=== PATIENT | female | born 1940 | race Caucasian/White ===

== ENCOUNTER → 2016-06-02 | Outpatient (CLI) | payer OTHER ==
[~2016-06-02] MED LIST: AMLO5TAB2 PO; ASPI81CH CHEW; ATEN50TA PO; ATOR20TA15 PO; COQ-30CA2 PO; FENT25T T-DERMAL; FISH1000 PO; HYDR-3366 PO; OMEP20CA2 PO; SERT25TA83 PO; TRAM50TA PO; TRIA37.53 PO
== END ==
LOC: CPRE 11:49
PROVIDERS: ATTEND Neurological Surgery
DX: M99.83 Other biomechanical lesions of lumbar region (principal); M48.06 Spinal stenosis, lumbar region; M96.1 Postlaminectomy syndrome, not elsewhere classified

== ENCOUNTER → 2016-06-04 | Day surgery (SDC) | payer OTHER ==
[~2016-06-04] VITALS: Ht 160 cm; Wt 73.1 kg
[~2016-06-04] MED LIST changes: +ACETAMINOPHEN 1000 MG/100 ML VIAL IV ONE; +DEXAMETHASONE SOD PHOS 4 MG/ML VIAL ONE; +DO NOT ADM ANY ANTICOAGULANT DRUGS XX PRN; +FAMOTIDINE 20 MG/2 ML VIAL ONE; +GELFOAM SIZE 100 ONE; +INSULIN HUMAN REGULAR 1,000 UNITS/10 ML VIAL SQ PRN; +LACTATED RINGER'S 1000 ML IV SCH; +METOPROLOL TARTRATE 25 MG TAB PO PRN; +MIDAZOLAM HCL 2 MG/2 ML VIAL ONE; +NEOSTIGMINE 3 MG/3 ML SYR IV ONE; +ONDANSETRON HCL 4 MG/2 ML VIAL IV PUSH ONE; +PHENYLEPH/NS 1000 MCG/10 ML SYR IV ONE; +PROPOFOL 200 MG/20 ML AMP IV ONE; +SODIUM CHLOR 0.9% 1000 ML INJ 1,000 ML IV SCH; +SODIUM CHLORID 0.9% 500 ML IV SCH; +SUGAMMADEX SODIUM 200 MG/2 ML VIAL IV PUSH ONE; +THROMBIN (TOPICAL) 5,000 UNIT VIAL ONE; +VANCOMYCIN HCL 1000 MG ON-CALL/NS 250 ML IV SCH; +VANCOMYCIN HCL 1000 MG VIAL ONE; +ePHEDrine/NS 25 MG/5 ML SYR IV ONE; +fentaNYL CITRATE 250 MCG/5 ML AMP ONE; +methylPREDNISolone ACETATE 40 MG/ML VIAL ONE
[2016-06-04 06:48] VITALS: BP 164/83; PULSE 72; RESP 18; TEMP 97.9; O2SAT 97
[2016-06-04] MEDS: BUPIVACAINE/EPINEPHRINE 0.5% PF 30 ML VIAL ONE ×2 (09:04→09:45)
--- NOTE | 2016-06-04 10:26 | PD.OP ---
MD Danny Ag MD Operative Report Date of Surgery: Jun 04, 2016 Preoperative Diagnosis: Right L3-4 lateral disc herniation with facet hypertrophy associated back pain and intractable right L3 radiculopathy; history of right L3-4 hemilaminotomy with synovial cyst resection Postoperative Diagnosis: Same Procedure: Redo right L3-4 hemilaminotomy with the medial facetectomy/foraminotomy with microdiscectomy; microsurgical technique Anesthesia: Gen. endotracheal by Lina Corcoran Surgeon: Camden Comer M.D. [employer] Food Supervisor(s): Layla Davila Operation and Findings: Following administration of general endotracheal anesthesia, patient received vancomycin 1 g intravenously. Sequential compression devices were placed for DVT prophylaxis. She was then turned in prone position on Brady frame and the Jordin table and all pressure points adequately padded. The lumbar region was then shaved and prepped with a Betadine and ChloraPrep. Sterile draping undertaken with Ioban. Midline incision overlying the previous L3-4 level was then made after infiltrating the skin with 0.5% Marcaine with epinephrine solution. The skin incision was made extending down through the fascia and then using the subperiosteal plane on the right side the muscular attachments to the spinous process and lamina were detached. Intraoperative fluoroscopy was used for level confirmation and further dissection undertaken using microtechnique with microscope magnification. Previous right L3-4 hemilaminotomy with medial facetectomy was evident along with epidural scar tissue. I drilled out to this some more the right L3-4 facet to expose the foramen and also the more normal dura and exiting nerve root. There was facet hypertrophy along with a lateral disc herniation leading to significant foraminal stenosis and exiting nerve root impingement. The anulus was incised at the axilla of the nerve root and the thecal sac and the microdiscectomy undertaken with pituitary forceps. The foramen along with the exiting L3 nerve root was completely decompressed. Epidural venous stasis achieved with bipolar cautery along with Gelfoam and thrombin. The area was then copiously irrigated with vancomycin solution. The retractors removed and the muscle fascia proximal using 2-0 Vicryl interrupted stitches. 3-0 Vicryl subcuticular stitches were also placed in an interrupted fashion and planned skin closure was with Mastisol and Steri-Strips. A sterile dressing was then applied and the patient then turned in the supine position and extubated and taken to recovery room in stable condition. There were no intraoperative complications and all sponge and needle count was correct at the end of the procedure. Estimated blood loss about 25 ml. Camden Comer MD Jun 04, 2016 10:26
--- NOTE | 2016-06-04 10:52 | RADRPT ---
EXAM DATE/TIME: 06/04/2016 07:58 [facility] COMPARISON: No previous studies available for comparison. INDICATIONS : L3-L4 lumbar samuel-laminotomy. Level localization. MEDICAL HISTORY : None. SURGICAL HISTORY : None. ENCOUNTER: Initial ACUITY: 1 day PAIN SCORE: Non-responsive. LOCATION: Lumbar spine. FINDINGS: Single lateral view of the lumbar spine is obtained in the operating room. Posterior retractors and a pointer are seen. The pointer is at the L3/L4 level. CONCLUSION: Retractors and pointer at L3/L4. Duke Almazan MD on June 04, 2016 at 10:50 Board Certified Radiologist. This report was verified electronically.
[2016-06-04 12:36] VITALS: BP 134/69; PULSE 74; RESP 16; TEMP 98.7; O2SAT 99
== END | disposition home or self-care (01) ==
LOC: HSDC 05:53
PROVIDERS: ATTEND Neurological Surgery
DX: M51.16 Intervertebral disc disorders with radiculopathy, lumbar region (principal)
CPT/HCPCS: 00630; 63042; 72020; 76000; J0131; J1030; J1100; J2250; J2370; J2405; J2710; J3010; J3370; J7050; J7120

== ENCOUNTER 2016-07-27 14:03 | Observation (INO) | payer OTHER ==
[~2016-07-27 14:03] MED LIST changes: -ACETAMINOPHEN 1000 MG/100 ML VIAL IV ONE; -COQ-30CA2 PO; -DEXAMETHASONE SOD PHOS 4 MG/ML VIAL ONE; -DO NOT ADM ANY ANTICOAGULANT DRUGS XX PRN; -FAMOTIDINE 20 MG/2 ML VIAL ONE; -GELFOAM SIZE 100 ONE; -INSULIN HUMAN REGULAR 1,000 UNITS/10 ML VIAL SQ PRN; -LACTATED RINGER'S 1000 ML IV SCH; -METOPROLOL TARTRATE 25 MG TAB PO PRN; -MIDAZOLAM HCL 2 MG/2 ML VIAL ONE; -NEOSTIGMINE 3 MG/3 ML SYR IV ONE; -ONDANSETRON HCL 4 MG/2 ML VIAL IV PUSH ONE; -PHENYLEPH/NS 1000 MCG/10 ML SYR IV ONE; -PROPOFOL 200 MG/20 ML AMP IV ONE; -SODIUM CHLOR 0.9% 1000 ML INJ 1,000 ML IV SCH; -SODIUM CHLORID 0.9% 500 ML IV SCH; -SUGAMMADEX SODIUM 200 MG/2 ML VIAL IV PUSH ONE; -THROMBIN (TOPICAL) 5,000 UNIT VIAL ONE; -VANCOMYCIN HCL 1000 MG ON-CALL/NS 250 ML IV SCH; -VANCOMYCIN HCL 1000 MG VIAL ONE; -ePHEDrine/NS 25 MG/5 ML SYR IV ONE; -fentaNYL CITRATE 250 MCG/5 ML AMP ONE; -methylPREDNISolone ACETATE 40 MG/ML VIAL ONE
[2016-07-27] MEDS ORDERED: SODIUM CHLORID 0.9% 500 ML INJ 500 ML IV ONE (14:30)
[2016-07-27] MEDS ORDERED: SODIUM CHLORIDE 0.9% FLUSH 10 ML FLUSH IVF PRN (14:30)
[2016-07-27] MEDS ORDERED: MECLIZINE HCL 25 MG TAB PO ONE (14:30)
[2016-07-27 14:37] VITALS: RESP 16; O2SAT 96
--- NOTE | 2016-07-27 15:11 | RADRPT ---
EXAM DATE/TIME: 07/27/2016 14:43 [facility] COMPARISON: CHEST SINGLE AP, July 10, 2015, 15:36. INDICATIONS : Shortness of breath. MEDICAL HISTORY : None. SURGICAL HISTORY : None. ENCOUNTER: Initial ACUITY: 1 day PAIN SCORE: 0/10 LOCATION: Bilateral chest FINDINGS: There is a possible 1.7 cm nodule in the left upper lobe versus overlap of the bony structures. Heart and mediastinum are unremarkable for technique. CONCLUSION: Possible left upper lobe nodule and noncontrast chest CT is recommended to further characterize. Velvet Collins MD on July 27, 2016 at 15:08 Board Certified Radiologist. This report was verified electronically.
[2016-07-27] MEDS ORDERED: traMADol HCL 50 MG TAB PO ONE (15:15)
[2016-07-27 16:00] LABS: AUTOMATED NEUTROPHIL # 6.8 TH/MM3 (1.8-7.7); BASOPHIL # 0.1 TH/MM3 (0-0.2); BASOPHIL % 0.8 % (0.0-2.0); EOSINOPHIL % 0.3 % (0.0-4.0); HEMATOCRIT 40.5 % (35.0-46.0); HEMO FLAGS DIFF FINAL; LYMPH % 15.1 % (9.0-44.0); LYMPHOCYTE # 1.3 TH/MM3 (1.0-4.8); MEAN CELL VOLUME 89.5 FL (80.0-100.0); MEAN CORPUSCULAR HEMOGLOBIN 31.6 PG (27.0-34.0); MEAN CORPUSCULAR HGB CONC 35.3 % (32.0-36.0); NEUT % 76.8 % (16.0-70.0); PLATELET COUNT 253 TH/MM3 (150-450); RED BLOOD COUNT 4.53 MIL/MM3 (4.00-5.30); RED CELL DISTRIBUTION WIDTH 12.4 % (11.6-17.2); WHITE BLOOD COUNT 8.9 TH/MM3 (4.0-11.0)
[2016-07-27 16:20] LABS: APTT (PATIENT) 31.8 SEC (24.3-30.1); PROTHROMBIN TIME - PATIENT 11.2 SEC (9.8-11.6)
[2016-07-27 16:34] LABS: ALT (GPT) 25 U/L (10-53); ANION GAP 11 MEQ/L (5-15); AST (GOT) 28 U/L (15-37); BICARBONATE 28.2 MEQ/L (21.0-32.0); BLOOD UREA NITROGEN 10 MG/DL (7-18); CHLORIDE 99 MEQ/L (98-107); GLOMERULAR FILTRATION RATE 77 ML/MIN (>89); POTASSIUM 3.5 MEQ/L (3.5-5.1); SODIUM (NA) 138 MEQ/L (136-145)
[2016-07-27 16:34] LABS: BLOOD, URINE NEG (NEG); COMMENT (UR) CULT NOT INDICATED; CULTURE IF INDICATED CULT NOT INDICATED; GLUCOSE,URINE NEG (NEG); KETONE, URINE NEG (NEG); MUCUS URINE FEW /lpf (OCC); NITRITE,URINE NEG (NEG); SQUAMOUS EPITHELIAL CELL URINE 1 /hpf (0-5); URINE COLOR YELLOW (YELLW/STRAW)
[2016-07-27 16:37] LABS: ALKALINE PHOSPHATASE 98 U/L (45-117)
--- NOTE | 2016-07-27 18:19 | RADRPT ---
EXAM DATE/TIME: 07/27/2016 17:51 [facility] COMPARISON: No previous studies available for comparison. INDICATIONS : Near syncopal episodes. RADIATION DOSE: 56.35 CTDIvol (mGy) MEDICAL HISTORY : Cardiovascular disease. Hypertension. Carcinoma, lung. SURGICAL HISTORY : Tubal ligation. lung surgery ENCOUNTER: Initial ACUITY: 1 week PAIN SCALE: 0/10 LOCATION: cranial TECHNIQUE: Multiple contiguous axial images were obtained of the head. Using automated exposure control and adj ustment of the mA and/or kV according to patient size, radiation dose was kept as low as reasonably a chievable to obtain optimal diagnostic quality images. FINDINGS: There is no evidence for intracranial hemorrhage, mass effect, mass lesions, or edema. The visualize d bony structures appear intact. Slight degree of brain atrophy is seen. Slight periventricular whit e matter changes are seen nonspecific mostly consistent with chronic small vessel ischemic changes. There are no signs of acute infarction for technique. CONCLUSION: Slight atrophic and small vessel ischemic changes without any evidence for acute hemorrhage or mass effect. Velvet Collins MD on July 27, 2016 at 18:16 Board Certified Radiologist. This report was verified electronically.
[2016-07-27 18:42] VITALS: BP 187/78; PULSE 67; RESP 18
--- NOTE | 2016-07-27 18:50 | PD ---
HPI Chief Complaint: Syncope/Near-Syncope Time Seen by Provider: 14:16 Travel History International Travel<30 days: No Contact w/Intl Traveler<30days: No Traveled to known affect area: No History of Present Illness HPI Patient is a 76 year old female who comes in complaining of dizziness and back pain. She has a history of back pain, treated by surgery by Dr. Comre in May. She went back to see Dr. Comer 2 weeks ago who gave her a prescription for Fentanyl patch. She has been using the Fentanyl patch and taking hydrocodone as needed. She says she has been feeling dizzy for several days and she is having a difficult time walking. She says she is unable to care for herself due to her pain and dizziness. She has not had any chest pain or SOB. She denies fever or chills. 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) Cardiovascular Problems: Yes (stent) High Cholesterol: Yes Diabetes: No Patient Takes Glucophage: No Endocrine: No Fibromyalgia: Yes Genitourinary: No Hepatitis: No Hiatal Hernia: No Herniated Disk: Yes (maybe bulging discs - back care surgery) Hypertension: Yes Immune Disorder: No Musculoskeletal: Yes (NECK AND BACK) Neurologic: Yes (NEUROPATHY, BULGING DISC) Psychiatric: Yes (DEPRESSION) Reproductive: No Respiratory: Yes (CARCINOID TUMORS ALL LUNG BROWER) Thyroid Disease: No Tetanus Vaccination: Unknown Influenza Vaccination: No ?: Not : 1 Para: 1 Tubal Ligation: Yes Past Surgical History AICD: No Body Medical Devices: STENT, RIGHT ANKLE HARDWWARE Cardiac Surgery: Yes Coronary Stent: Yes Ear Surgery: No Eye Surgery: No Gynecologic Surgery: Yes (LAP TUBAL LIGATION) Joint Replacement: No Neurologic Surgery: Yes (CERVICAL FUSION) Oral Surgery: Yes (TONSILLECTOMY) Pacemaker: No Thoracic Surgery: Yes Social History Alcohol Use: Yes (couple drinks every night, except this last month, minimal) Tobacco Use: No Substance Use: No Allergies-Medications (Allergen,Severity, Reaction): Coded Allergies: Sulfa (Verified Allergy, Severe, 07/16/16) UNKNOWN Reported Meds & Prescriptions Reported Meds & Active Scripts Active Duragesic Patch 72 HR (Fentanyl) 25 Mcg/Hr Patch 25 Mcg T-DERMAL Q72H Remove old patch when new one placed. [place] (Hydrocodone-Acetaminophen) 10-325 Mg Tab 1 Tab PO Q6H PRN Reported Atenolol 50 Mg Tab 50 Mg PO DAILY Fish Oil ([place]-3 Fatty Acids) 1,000 Mg Cap 100 Mg PO DAILY Aspirin 81 Mg Chew 81 Mg CHEW DAILY Triamterene-Hydrochlorothiazide 37.5-25 Mg Cap 1 Cap PO DAILY Tramadol (Tramadol HCl) 50 Mg Tab 50 Mg PO DAILY 90 Days Atorvastatin (Atorvastatin Calcium) 20 Mg Tab 20 Mg PO DAILY 90 Days Amlodipine (Amlodipine Besylate) 5 Mg Tab 5 Mg PO DAILY 90 Days Sertraline (Sertraline HCl) 25 Mg Tab 25 Mg PO DAILY 90 Days Omeprazole 20 Mg Cap 20 Mg PO DAILY 90 Days Review of Systems Except as stated in HPI: all other systems reviewed are Neg General / Constitutional: No: Fever, Chills HENT: No: Headaches Cardiovascular: No: Chest Pain or Discomfort, Palpitations Respiratory: No: Shortness of Breath Gastrointestinal: No: Nausea Musculoskeletal: Positive: Pain, No: Edema Skin: No Rash, No Change in Pigmentation Neurologic: Positive: Dizziness, No: Weakness Physical Exam Narrative GENERAL: Awake and alert, in no acute distress. SKIN: Focused skin assessment warm/dry. HEAD: Atraumatic. Normocephalic. EYES: Pupils equal and round. No scleral icterus. EOMI ENT: Mucous membranes pink and moist. NECK: Trachea midline. No JVD. CARDIOVASCULAR: Regular rate and rhythm. No murmur appreciated. RESPIRATORY: No accessory muscle use. Clear to auscultation. Breath sounds equal bilaterally. GASTROINTESTINAL: Abdomen soft, non-tender, nondistended. MUSCULOSKELETAL: No obvious deformities. No clubbing. No cyanosis. No edema. No lumbar spine tenderness. No tenderness to the hips. NEUROLOGICAL: Awake and alert. No obvious cranial nerve deficits. Motor grossly within normal limits. Normal speech. PSYCHIATRIC: Appropriate mood and affect; insight and judgment normal. Data Data Last Documented VS Vital Signs Date Time Temp Pulse Resp B/P Pulse Ox O2 Delivery O2 Flow Rate FiO2 07/27/16 14:37 16 96 07/27/16 14:25 Room Air Orders Electrocardiogram (07/27/16 14:29) Complete Blood Count With Diff (07/27/16 14:29) Comprehensive Metabolic Panel (07/27/16 14:29) Troponin I (07/27/16 14:29) Act Partial Throm Time (Ptt) (07/27/16 14:29) Prothrombin Time / Inr (Pt) (07/27/16 14:29) Urinalysis - C+S If Indicated (07/27/16 14:29) Ua Includes Microscopic (07/27/16 14:29) Chest, Single Ap (07/27/16 14:29) Ecg Monitoring (07/27/16 14:29) Iv Access Insert/Monitor (07/27/16 14:29) Oximetry (07/27/16 14:29) Meclizine (Antivert) (07/27/16 14:30) Sodium Chloride 0.9% Flush (Ns Flush) (07/27/16 14:30) Sodium Chlorid 0.9% 500 Ml Inj (Ns 500 M (07/27/16 14:30) Tramadol (Ultram) (07/27/16 15:15) Ct Brain W/O Iv Contrast(Rout) (07/27/16 ) Labs Laboratory Tests Test 07/27/16 07/27/16 15:00 15:47 White Blood Count 8.9 TH/MM3 Red Blood Count 4.53 MIL/MM3 Hemoglobin 14.3 GM/DL Hematocrit 40.5 % Mean Corpuscular Volume 89.5 FL Mean Corpuscular Hemoglobin 31.6 PG Mean Corpuscular Hemoglobin 35.3 % Concent Red Cell Distribution Width 12.4 % Platelet Count 253 TH/MM3 Mean Platelet Volume 10.4 FL Neutrophils (%) (Auto) 76.8 % Lymphocytes (%) (Auto) 15.1 % Monocytes (%) (Auto) 7.0 % Eosinophils (%) (Auto) 0.3 % Basophils (%) (Auto) 0.8 % Neutrophils # (Auto) 6.8 TH/MM3 Lymphocytes # (Auto) 1.3 TH/MM3 Monocytes # (Auto) 0.6 TH/MM3 Eosinophils # (Auto) 0.0 TH/MM3 Basophils # (Auto) 0.1 TH/MM3 CBC Comment DIFF FINAL Differential Comment Prothrombin Time 11.2 SEC Prothromb Time International 1.0 RATIO Ratio Activated Partial 31.8 SEC Thromboplast Time Sodium Level 138 MEQ/L Potassium Level 3.5 MEQ/L Chloride Level 99 MEQ/L Carbon Dioxide Level 28.2 MEQ/L Anion Gap 11 MEQ/L Blood Urea Nitrogen 10 MG/DL Creatinine 0.74 MG/DL Estimat Glomerular Filtration 77 ML/MIN Rate Random Glucose 109 MG/DL Calcium Level 9.8 MG/DL Total Bilirubin 1.0 MG/DL Aspartate Amino Transf 28 U/L (AST/SGOT) Alanine Aminotransferase 25 U/L (ALT/SGPT) Alkaline Phosphatase 98 U/L Troponin I LESS THAN 0.02 NG/ML Total Protein 7.6 GM/DL Albumin 3.7 GM/DL Urine Color YELLOW Urine Turbidity CLEAR Urine pH 8.0 Urine Specific [place] 1.008 Urine Protein NEG mg/dL Urine Glucose (UA) NEG mg/dL Urine Ketones NEG mg/dL Urine Occult Blood NEG Urine Nitrite NEG Urine Bilirubin NEG Urine Urobilinogen LESS THAN 2.0 MG/DL Urine Leukocyte Esterase TRACE Urine WBC 1 /hpf Urine Squamous Epithelial 1 /hpf Cells Urine Mucus FEW /lpf Microscopic Urinalysis Comment CULT NOT INDICATED MDM Medical Decision Making Medical Screen Exam Complete: Yes Emergency Medical Condition: Yes Medical Record Reviewed: Yes Interpretation(s) ECG shows sinus rhythm at 64, no ST elevation Differential Diagnosis Electrolyte abnormalities vs medication side affect vs CVA Narrative Course Patient is a 76 year old female who comes in complaining of dizziness and inability to care for herself. Exam shows no neurologic abnormalities, although she has some difficulty walking. IV established, labs sent. Labs show no acute abnormalities. Urinalysis negative for infection. CT head shows no acute findings. Patient states she is unable to care for herself at home. Will place in observation. Diagnosis Primary Impression: Dizziness Additional Impression: Unsteadiness Admitting Information Admitting Physician Requests: Observation Lauren Galan MD Jul 27, 2016 18:49
[2016-07-27] MEDS ORDERED: ACETAMINOPHEN 325 MG TAB PO PRN (19:45)
[2016-07-27] MEDS ORDERED: ONDANSETRON HCL 4 MG/2 ML VIAL IVP PRN (19:45)
[2016-07-27] MEDS ORDERED: NALOXONE HCL 0.4 MG/ML AMP IV PRN (19:45)
[2016-07-27] MEDS ORDERED: SODIUM CHLORIDE 0.9% FLUSH 10 ML FLUSH IV FLUSH PRN (19:45)
[2016-07-27 21:22] VITALS: BP 158/72; PULSE 65; RESP 16; O2SAT 97
[2016-07-27] MEDS: SODIUM CHLORIDE 0.9% FLUSH 10 ML FLUSH IV FLUSH SCH (21:24)
[2016-07-27] MEDS: ENOXAPARIN SODIUM 40 MG/0.4 ML SYRINGE SQ SCH (21:24)
[2016-07-27] MEDS: DOCUSATE SODIUM 100 MG CAP PO SCH (21:24)
[2016-07-27] MEDS: fentaNYL 25 MCG/HR PATCH T-DERMAL SCH (21:25)
[2016-07-27] MEDS: ACETAMINOPHEN/HYDROcodone 325 MG/10 MG TAB PO PRN (21:34)
[2016-07-28] VITALS (7 sets, daily range): BP systolic 109–175; BP diastolic 56–79; PULSE 62–73; RESP 17–20; TEMP 97.9–98.6; O2SAT 93–98
--- NOTE | 2016-07-28 00:41 | HHI.HP ---
[facility] Danny Villegas MD Admission Diagnosis dizziness, unable to walk Diagnoses: (1) Back pain Diagnosis: Principal (2) Unsteadiness Diagnosis: Principal (3) Dizziness Diagnosis: Principal (4) H/O laminectomy Diagnosis: Principal Travel History International Travel<30 Days: No Contact w/Intl Traveler <30 Da: No Traveled to Known Affected Are: No History of Present Illness Mrs. Pal is a 76 year old female. She reports a worsening of her laminectomy post op pain recently and has come into the hospital for further evaluation and pain management. The pain is preventing her from ambulating for more than a few feet and standing for any time than more than a couple of minutes. She feels it worsened recently. No fevers or chills. No leukocytosis. She also reports occasional dizziness, which sounds like a chronic BPV as this has occurred prior to her laminectomy also. No other complaints. Review of Systems Constitutional: DENIES: Fever, Chills Eyes: DENIES: Blurred vision, Diplopia Respiratory: DENIES: Shortness of breath Cardiovascular: DENIES: Chest pain, Palpitations Gastrointestinal: DENIES: Abdominal pain, Black stools, Bloody stools Genitourinary: DENIES: Abnormal vaginal bleeding Musculoskeletal: COMPLAINS OF: Joint pain, Back pain Integumentary: DENIES: Abnormal pigmentation Hematologic/lymphatic: DENIES: Bruising Immunologic/allergic: DENIES: Eczema Neurologic: DENIES: Abnormal gait Psychiatric: DENIES: Anxiety, Confusion, Mood changes, Hallucinations Past Family Social History Past Medical History Vertigo Osteoarthritis HTN Dyslipidemia Neuropathy Depression Past Surgical History Laminectomy Reported Medications Reported Meds & Active Scripts Active Duragesic Patch 72 HR (Fentanyl) 25 Mcg/Hr Patch 25 Mcg T-DERMAL Q72H Remove old patch when new one placed. [place] (Hydrocodone-Acetaminophen) 10-325 Mg Tab 1 Tab PO Q6H PRN Reported Atenolol 50 Mg Tab 50 Mg PO DAILY Fish Oil ([place]-3 Fatty Acids) 1,000 Mg Cap 100 Mg PO DAILY Aspirin 81 Mg Chew 81 Mg CHEW DAILY Triamterene-Hydrochlorothiazide 37.5-25 Mg Cap 1 Cap PO DAILY Tramadol (Tramadol HCl) 50 Mg Tab 50 Mg PO DAILY 90 Days Atorvastatin (Atorvastatin Calcium) 20 Mg Tab 20 Mg PO DAILY 90 Days Amlodipine (Amlodipine Besylate) 5 Mg Tab 5 Mg PO DAILY 90 Days Sertraline (Sertraline HCl) 25 Mg Tab 25 Mg PO DAILY 90 Days Omeprazole 20 Mg Cap 20 Mg PO DAILY 90 Days Allergies: Coded Allergies: Sulfa (Verified Allergy, Severe, 07/16/16) UNKNOWN Active Ordered Medications Administered Medications Medications (Trade) Dose Ordered Sig/Arlene Route PRN Reason Start Time Stop Time Status Last Admin Dose Admin Sodium Chloride (NS Flush) 2 ml BID IV FLUSH 07/27/16 21:00 07/27/16 21:24 Docusate Sodium (Colace) 100 mg Q12H PO 07/27/16 21:00 07/27/16 21:24 Enoxaparin Sodium (Lovenox Inj) 40 mg Q24H SQ 07/27/16 20:00 07/27/16 21:24 Fentanyl (Duragesic 25 Mcg Patch.72 Hr) 1 patch Q72H T-DERMAL 07/27/16 21:00 07/27/16 21:25 Acetaminophen/ Hydrocodone Bitart ([place] 10-325 Mg) 1 tab Q6H PRN PO PAIN 1 TO 10 07/27/16 19:45 07/27/16 21:34 Family History none Physical Exam Vital Signs Vital Signs Date Time Temp Pulse Resp B/P Pulse Ox O2 Delivery O2 Flow Rate FiO2 07/27/16 21:22 65 16 158/72 97 Room Air 07/27/16 18:42 67 18 187/78 Room Air 07/27/16 14:37 16 96 07/27/16 14:25 16 96 Room Air Physical Exam GENERAL: NAD, A&Ox3 SKIN: Warm and dry. HEAD: Normocephalic. EYES: No scleral icterus. No injection or drainage. NECK: Supple, trachea midline. No JVD or lymphadenopathy. CARDIOVASCULAR: Regular rate and rhythm without murmurs, gallops, or rubs. RESPIRATORY: Breath sounds equal bilaterally. No accessory muscle use. GASTROINTESTINAL: Abdomen soft, non-tender, nondistended. MUSCULOSKELETAL: No cyanosis, or edema. Back pain with gross movements. No evidence of infection. BACK: Nontender without obvious deformity. No CVA tenderness. Laboratory Laboratory Tests Test 07/27/16 07/27/16 15:00 15:47 White Blood Count 8.9 Red Blood Count 4.53 Hemoglobin 14.3 Hematocrit 40.5 Mean Corpuscular Volume 89.5 Mean Corpuscular Hemoglobin 31.6 Mean Corpuscular Hemoglobin 35.3 Concent Red Cell Distribution Width 12.4 Platelet Count 253 Mean Platelet Volume 10.4 Neutrophils (%) (Auto) 76.8 Lymphocytes (%) (Auto) 15.1 Monocytes (%) (Auto) 7.0 Eosinophils (%) (Auto) 0.3 Basophils (%) (Auto) 0.8 Neutrophils # (Auto) 6.8 Lymphocytes # (Auto) 1.3 Monocytes # (Auto) 0.6 Eosinophils # (Auto) 0.0 Basophils # (Auto) 0.1 CBC Comment DIFF FINAL Differential Comment Prothrombin Time 11.2 Prothromb Time International 1.0 Ratio Activated Partial 31.8 Thromboplast Time Sodium Level 138 Potassium Level 3.5 Chloride Level 99 Carbon Dioxide Level 28.2 Anion Gap 11 Blood Urea Nitrogen 10 Creatinine 0.74 Estimat Glomerular Filtration 77 Rate Random Glucose 109 Calcium Level 9.8 Total Bilirubin 1.0 Aspartate Amino Transf 28 (AST/SGOT) Alanine Aminotransferase 25 (ALT/SGPT) Alkaline Phosphatase 98 Troponin I LESS THAN 0.02 Total Protein 7.6 Albumin 3.7 Urine Color YELLOW Urine Turbidity CLEAR Urine pH 8.0 Urine Specific [place] 1.008 Urine Protein NEG Urine Glucose (UA) NEG Urine Ketones NEG Urine Occult Blood NEG Urine Nitrite NEG Urine Bilirubin NEG Urine Urobilinogen LESS THAN 2.0 Urine Leukocyte Esterase TRACE Urine WBC 1 Urine Squamous Epithelial 1 Cells Urine Mucus FEW Microscopic Urinalysis Comment CULT NOT INDICATED Result Diagram: 07/27/16 1500 07/27/16 1500 Imaging Last Impressions Chest X-Ray 07/27/16 1429 Signed Impressions: Service Date/Time: Wednesday, July 27, 2016 14:43 - CONCLUSION: Possible left upper lobe nodule and noncontrast chest CT is recommended to further characterize. Velvet Collins MD Head CT 07/27/16 0000 Signed Impressions: Service Date/Time: Wednesday, July 27, 2016 17:51 - CONCLUSION: Slight atrophic and small vessel ischemic changes without any evidence for acute hemorrhage or mass effect. Velvet Collins MD Assessment and Plan Problem List: (1) Unsteadiness ICD Code: R26.81 Status: Acute (2) Dizziness ICD Code: R42 Status: Acute (3) Back pain ICD Code: M54.9 Status: Acute (4) H/O laminectomy ICD Code: Z98.890 Status: Acute (5) Depression ICD Code: F32.9 Status: Acute (6) Hyperlipidemia ICD Code: E78.5 Status: Acute (7) HTN (hypertension) ICD Code: I10 Status: Acute Assessment and Plan Back Pain Unsteady Dizziness Hx of Laminectomy Neursurgery consult PRN pain treatments Out of bed with assistance only HTN Continue baseline medications Follow BP Depression No change to treatment Hyperlipidemia No change to treatment Follow as an outpatient Physician Certification 2 Midnight Certification Type: Admission for Inpatient Services Order for Inpatient Services The services are ordered in accordance with Medicare regulations or non- Medicare payer requirements, as applicable. In the case of services not specified as inpatient-only, they are appropriately provided as inpatient services in accordance with the 2-midnight benchmark. Estimated LOS (days): 2 days is the estimated time the patient will need to remain in the hospital, assuming treatment plan goals are met and no additional complications. Post-Hospital Plan: Home Trevor Brennan MD July 28, 2016 00:41
[2016-07-28 07:27] LABS: AUTOMATED NEUTROPHIL # 5.6 TH/MM3 (1.8-7.7); BASOPHIL # 0.1 TH/MM3 (0-0.2); BASOPHIL % 0.6 % (0.0-2.0); EOSINOPHIL # 0.1 TH/MM3 (0-0.4); EOSINOPHIL % 0.9 % (0.0-4.0); HEMATOCRIT 38.4 % (35.0-46.0); HEMO FLAGS DIFF FINAL; LYMPH % 33.5 % (9.0-44.0); LYMPHOCYTE # 3.2 TH/MM3 (1.0-4.8); MEAN CELL VOLUME 90.2 FL (80.0-100.0); MEAN CORPUSCULAR HEMOGLOBIN 31.2 PG (27.0-34.0); MEAN CORPUSCULAR HGB CONC 34.6 % (32.0-36.0); MONO % 7.6 % (0.0-8.0); NEUT % 57.4 % (16.0-70.0); PLATELET COUNT 220 TH/MM3 (150-450); RED BLOOD COUNT 4.25 MIL/MM3 (4.00-5.30); RED CELL DISTRIBUTION WIDTH 12.2 % (11.6-17.2); WHITE BLOOD COUNT 9.7 TH/MM3 (4.0-11.0)
[2016-07-28 07:54] LABS: BICARBONATE 30.6 MEQ/L (21.0-32.0); POTASSIUM 3.3 MEQ/L (3.5-5.1)
[2016-07-28] MEDS: ACETAMINOPHEN/HYDROcodone 325 MG/10 MG TAB PO PRN ×2 (08:10→15:48)
[2016-07-28] MEDS: SERTRALINE HCL 50 MG TAB PO SCH (08:10)
[2016-07-28] MEDS: ATORVASTATIN 20 MG TAB PO SCH (08:10)
[2016-07-28] MEDS: ATENOLOL 50 MG TAB PO SCH (08:11)
[2016-07-28] MEDS: amLODIPine BESYLATE 5 MG TAB PO SCH (08:11)
[2016-07-28] MEDS: TRIAMTERENE/HCTZ 37.5 MG/25 MG CAP PO SCH (08:11)
[2016-07-28] MEDS: PANTOPRAZOLE SOD 20 MG DELAYED RELEASE TAB PO SCH (08:11)
[2016-07-28] MEDS: DOCUSATE SODIUM 100 MG CAP PO SCH ×2 (08:11→21:28)
[2016-07-28] MEDS: ASPIRIN 81 MG CHEW TAB CHEW SCH (08:11)
[2016-07-28] MEDS: SODIUM CHLORIDE 0.9% FLUSH 10 ML FLUSH IV FLUSH SCH ×2 (08:12→21:28)
[2016-07-28] MEDS ORDERED: FATTY ACIDS PO SCH (09:00)
[2016-07-28] MEDS ORDERED: OMEGA PO SCH (09:00)
[2016-07-28] MEDS: HYDROmorphone HCL PF 1 MG/ML VIAL IV PUSH PRN (12:12)
--- NOTE | 2016-07-28 12:39 | HHI.PR ---
Subjective Remarks Pain remains and is about the same today. No numbness. She does feel weakness , but globally and related to pain/splinting. Objective Vital Signs Date Time Temp Pulse Resp B/P Pulse Ox O2 Delivery O2 Flow Rate FiO2 07/28/16 11:52 98.3 73 20 175/79 98 07/28/16 10:44 18 07/28/16 07:20 97.9 62 20 143/72 94 07/28/16 05:23 97.9 63 20 135/71 96 07/28/16 00:50 98.6 66 20 109/56 93 07/27/16 21:22 65 16 158/72 97 Room Air 07/27/16 18:42 67 18 187/78 Room Air 07/27/16 14:37 16 96 07/27/16 14:25 16 96 Room Air I/O 07/27/16 07/27/16 07/27/16 07/28/16 07/28/16 07/28/16 07:00 15:00 23:00 07:00 15:00 23:00 Output Total 30 ml Balance -30 ml Output Urine Total 30 ml # Voids 1 Result Diagram: 07/28/16 0623 07/28/16 0623 Imaging Last Impressions Chest X-Ray 07/27/16 1429 Signed Impressions: Service Date/Time: Wednesday, July 27, 2016 14:43 - CONCLUSION: Possible left upper lobe nodule and noncontrast chest CT is recommended to further characterize. Velvet Collins MD Head CT 07/27/16 0000 Signed Impressions: Service Date/Time: Wednesday, July 27, 2016 17:51 - CONCLUSION: Slight atrophic and small vessel ischemic changes without any evidence for acute hemorrhage or mass effect. Velvet Collins MD Objective Remarks GENERAL: NAD, A&Ox3 SKIN: Warm and dry. HEAD: Normocephalic. EYES: No scleral icterus. No injection or drainage. NECK: Supple, trachea midline. No JVD or lymphadenopathy. CARDIOVASCULAR: Regular rate and rhythm without murmurs, gallops, or rubs. RESPIRATORY: Breath sounds equal bilaterally. No accessory muscle use. GASTROINTESTINAL: Abdomen soft, non-tender, nondistended. MUSCULOSKELETAL: No cyanosis, or edema. BACK: Nontender without obvious deformity. No CVA tenderness. Medications and IVs Administered Medications Medications (Trade) Dose Ordered Sig/Arlene Route PRN Reason Start Time Stop Time Status Last Admin Dose Admin Sodium Chloride (NS Flush) 2 ml BID IV FLUSH 07/27/16 21:00 07/28/16 08:12 Docusate Sodium (Colace) 100 mg Q12H PO 07/27/16 21:00 07/28/16 08:11 Enoxaparin Sodium (Lovenox Inj) 40 mg Q24H SQ 07/27/16 20:00 07/27/16 21:24 Amlodipine Besylate (Norvasc) 5 mg DAILY PO 07/28/16 09:00 07/28/16 08:11 Aspirin (Aspirin Chew) 81 mg DAILY CHEW 07/28/16 09:00 07/28/16 08:11 Atenolol (Tenormin) 50 mg DAILY PO 07/28/16 09:00 07/28/16 08:11 Atorvastatin Calcium (Lipitor) 20 mg DAILY PO 07/28/16 09:00 07/28/16 08:10 Fentanyl (Duragesic 25 Mcg Patch.72 Hr) 1 patch Q72H T-DERMAL 07/27/16 21:00 07/27/16 21:25 Acetaminophen/ Hydrocodone Bitart ([place] 10-325 Mg) 1 tab Q6H PRN PO PAIN 1 TO 10 07/27/16 19:45 07/28/16 08:10 Triamterene/HCTZ (Dyazide 37.5-25 Mg) 1 cap DAILY PO 07/28/16 09:00 07/28/16 08:11 Pantoprazole Sodium (Protonix) 20 mg DAILY PO 07/28/16 09:00 07/28/16 08:11 Sertraline HCl (Zoloft) 25 mg DAILY PO 07/28/16 09:00 07/28/16 08:10 Hydromorphone HCl (Dilaudid Pf Inj) 0.5 mg Q4H PRN IV PUSH BREAKTHROUGH PAIN 07/28/16 12:15 07/28/16 12:12 A/P Problem List: (1) H/O laminectomy ICD Code: Z98.890 (2) Back pain ICD Code: M54.9 (3) Depression ICD Code: F32.9 (4) HTN (hypertension) ICD Code: I10 (5) Hyperlipidemia ICD Code: E78.5 Assessment and Plan HTN Continue baseline medications Follow BP Depression No change to treatment Hyperlipidemia No change to treatment Follow as an outpatient Trevor Brennan MD July 28, 2016 12:39
[2016-07-28] MEDS ORDERED: GADODIAMIDE PF 287 MG/ML 5 ML VIAL (for RAD MRI) IV ONE (15:30)
--- NOTE | 2016-07-28 17:08 | RADRPT ---
EXAM DATE/TIME: 07/28/2016 14:21 [facility] COMPARISON: No previous studies available for comparison. INDICATIONS : Right hip pain for 5 years. Increase in pain over the last 8 weeks. MEDICAL HISTORY : None. SURGICAL HISTORY : None. ENCOUNTER: Initial ACUITY: >1 year PAIN SCORE: 10/10 LOCATION: Right hip. FINDINGS: There is severe arthritic change in the right hip with complete superior joint space loss. There is s ome superior and lateral subluxation of the femoral head relative to the acetabulum. There is no evid ence of fracture or destructive change. Prominent subchondral sclerosis and subchondral cyst formatio n is noted. Mild arthritic changes are present in the contralateral left hip. The pelvis is intact. CONCLUSION: Severe degenerative arthritic change right hip. No acute bony findings. Duke Pastor MD on July 28, 2016 at 17:04 Board Certified Radiologist. This report was verified electronically.
--- NOTE | 2016-07-28 17:30 | RADRPT ---
EXAM DATE/TIME: 07/28/2016 15:00 [facility] COMPARISON: SPINE LUMBAR LATERAL ONLY, March 27, 2014, 11:24. SPINE LUMBAR LATERAL ONLY, June 04, 2016, 7:58 . INDICATIONS : Radiculopathy. CONTRAST: 12 cc Omniscan (gadodiamide) IV MEDICAL HISTORY : Carcinoma, lung. SURGICAL HISTORY : Fusion, cervical. Lumbar laminotomy. Bi-lateral lung. ENCOUNTER: Subsequent ACUITY: 2 day PAIN SCORE: 8/10 LOCATION: Lower back. TECHNIQUE: Multiplanar multisequence MRI of the lumbar spine was performed with and without contrast. FINDINGS: There appears to have been recent right sided laminotomy at L3-4. There is some edema along the opera tive tract and a small peripherally enhancing fluid collection just superficial to the spinous proces s at images above the operative level. There is mild compressive deformity involving L3 with about 30 % loss of central and ventral vertebral body height which does not appear to been present previously and is likely an acute compression injury. There is sub-endplate enhancement and edema mainly involvi ng L3 which in this setting is nonspecific. There is mild epidural enhancement, also nonspecific. At T12-L1, there is slight undulating dorsal disc protrusion, mildly eccentric to the right with slig ht indentation of thecal sac. Canal and foramina satisfactory. At L2-3, mild annular disc bulge with slight superimposed broad dorsal disc protrusion is present. Th ere is moderate dorsal ligamentous and facet hypertrophy contribute to slight concentric canal stenos is. Foramina appear adequate. At L3-4, there is residual or recurrent broad dorsal disc protrusion mildly flattening the thecal sac . Residual dorsal ligamentous hypertrophy contributes to compression of the thecal sac. There is mild ly enhancing intermediate signal intensity material in the right neural foramen At L4-5, slight annular disc bulging minimal superimposed broad dorsal protrusion is present. Severe bilateral posterior facet arthropathy with facet cyst protruding dorsally on the left side. Canal and foramina minimally compromised. CONCLUSION: Subacute appearing mild compressive injury at L3 and nonspecific changes associated with recent zulay otomy. See above discussion. Duke Pastor MD on July 28, 2016 at 17:20 Board Certified Radiologist. This report was verified electronically.
[2016-07-28] MEDS: ENOXAPARIN SODIUM 40 MG/0.4 ML SYRINGE SQ SCH (21:28)
--- NOTE | 2016-07-28 23:05 | EKG ---
Date Performed: 07/27/2016 Time Performed: 14:47:00 PTAGE: 76 years EKG: Sinus rhythm MARKED LEFT AXIS DEVIATION MODERATE VOLTAGE CRITERIA FOR LVH, CONSIDER NORMAL VARIANT POSSIBLE SEPTA L MYOCARDIAL INFARCTION ABNORMAL ECG NO PREVIOUS TRACING DOCTOR: Ke Lemos Interpretating Date/Time 07/28/2016 23:03:05
[2016-07-29] MEDS: ACETAMINOPHEN/HYDROcodone 325 MG/10 MG TAB PO PRN ×3 (00:27→20:49)
[2016-07-29 04:21] VITALS: BP 126/71; PULSE 89; RESP 18; TEMP 98.2; O2SAT 97
[2016-07-29 08:00] VITALS: BP 136/65; PULSE 80; RESP 18; TEMP 96.8; O2SAT 92
[2016-07-29] MEDS: ATENOLOL 50 MG TAB PO SCH (08:06)
[2016-07-29] MEDS: DOCUSATE SODIUM 100 MG CAP PO SCH ×2 (08:06→20:48)
[2016-07-29] MEDS: PANTOPRAZOLE SOD 20 MG DELAYED RELEASE TAB PO SCH (08:06)
[2016-07-29] MEDS: TRIAMTERENE/HCTZ 37.5 MG/25 MG CAP PO SCH (08:06)
[2016-07-29] MEDS: SODIUM CHLORIDE 0.9% FLUSH 10 ML FLUSH IV FLUSH SCH ×2 (08:06→20:49)
[2016-07-29] MEDS: amLODIPine BESYLATE 5 MG TAB PO SCH (08:07)
[2016-07-29] MEDS: ATORVASTATIN 20 MG TAB PO SCH (08:07)
[2016-07-29] MEDS: ASPIRIN 81 MG CHEW TAB CHEW SCH (08:07)
[2016-07-29] MEDS: SERTRALINE HCL 50 MG TAB PO SCH (08:07)
[2016-07-29 12:00] VITALS: BP 123/65; PULSE 82; RESP 18; TEMP 99; O2SAT 94
[2016-07-29 16:00] VITALS: BP 140/65; PULSE 77; RESP 18; TEMP 98.2; O2SAT 95
--- NOTE | 2016-07-29 16:20 | HHI.NSPN ---
History Interval History 76-year-old lady presented to the emergency room with complains of a right buttock and the hip and anterior thigh pain which is worsened and the severe for the past 3 weeks. She also has lumbosacral area back pain but admits that her right hip and thigh pain that limited her activity status prompting her to come to the emergency room. We had seen her last week and recommended MRI of the lumbar spine as well as right hip x-rays which were undertaken last evening per my request. She is found to have severe right hip degeneration on the x- ray. On lumbar spine MRI scan she has L3-4 postoperative changes along with some degree of spinal and foraminal stenosis with the L3 superior endplate mild compression deformity with T2-weighted changes. There is also mild stenosis at L2-3 level along the multilevel degenerative changes noted. She denies any numbness in the lower extremities. Exam Results Vital Signs Date Time Temp Pulse Resp B/P Pulse Ox O2 Delivery O2 Flow Rate FiO2 07/29/16 16:00 98.2 77 18 140/65 95 07/27/16 21:22 Room Air Physical Examination Lumbar incision is healed well She has positive right Lukasz's maneuver Motor strength 5 out of 5 with some limitation because of hip pain movement Light touch sensation is intact Negative Babinski Lab, Micro, Other Results Last Impressions Lumbar Spine MRI 07/28/16 0000 Signed Impressions: Service Date/Time: Thursday, July 28, 2016 15:00 - CONCLUSION: Subacute appearing mild compressive injury at L3 and nonspecific changes associated with recent laminotomy. See above discussion. Duke Pastor MD Hip and Pelvis X-Ray 07/28/16 0000 Signed Impressions: Service Date/Time: Thursday, July 28, 2016 14:21 - CONCLUSION: Severe degenerative arthritic change right hip. No acute bony findings. Duke Pastor MD Chest X-Ray 07/27/16 1429 Signed Impressions: Service Date/Time: Wednesday, July 27, 2016 14:43 - CONCLUSION: Possible left upper lobe nodule and noncontrast chest CT is recommended to further characterize. Velvet Collins MD Head CT 07/27/16 0000 Signed Impressions: Service Date/Time: Wednesday, July 27, 2016 17:51 - CONCLUSION: Slight atrophic and small vessel ischemic changes without any evidence for acute hemorrhage or mass effect. Velvet Collins MD Medical Decision Making Impression and Plan 76-year-old lady who is down 2 months status post redo right L3-4 microdiscectomy with foraminotomy. She presents with worsening pain in the right buttock and hip and anterior thigh without any numbness along with lumbosacral area pain. Her symptoms at this point are more consistent with the right hip degeneration related pain. We will consult orthopedic surgery for their opinion. Recommend physical therapy as well as mechanical/chemical DVT prophylaxis along with pain management. Camden Comer MD July 29, 2016 16:20
--- NOTE | 2016-07-29 18:57 | HHI.PR ---
Subjective Remarks Pain remains. Not exhibiting functionality of ambulation or ability to care for self. No new complaints. Objective Vital Signs Date Time Temp Pulse Resp B/P Pulse Ox O2 Delivery O2 Flow Rate FiO2 07/29/16 16:00 98.2 77 18 140/65 95 07/29/16 12:00 99.0 82 18 123/65 94 07/29/16 09:12 16 07/29/16 08:00 96.8 80 18 136/65 92 07/29/16 04:21 98.2 89 18 126/71 97 07/28/16 23:46 98.3 70 20 126/60 97 07/28/16 19:04 98.2 70 18 111/59 97 I/O 07/28/16 07/28/16 07/28/16 07/29/16 07/29/16 07/29/16 07:00 15:00 23:00 07:00 15:00 23:00 Intake Total 840 ml Balance 840 ml Intake Oral 840 ml # Voids 3 # Bowel Movements 0 Result Diagram: 07/28/1623 07/28/16 0623 Objective Remarks GENERAL: NAD, A&Ox3 SKIN: Warm and dry. HEAD: Normocephalic. EYES: No scleral icterus. No injection or drainage. NECK: Supple, trachea midline. No JVD or lymphadenopathy. CARDIOVASCULAR: Regular rate and rhythm without murmurs, gallops, or rubs. RESPIRATORY: Breath sounds equal bilaterally. No accessory muscle use. GASTROINTESTINAL: Abdomen soft, non-tender, nondistended. MUSCULOSKELETAL: No cyanosis, or edema. BACK: Nontender without obvious deformity. No CVA tenderness. A/P Problem List: (1) H/O laminectomy ICD Code: Z98.890 (2) Back pain ICD Code: M54.9 (3) Depression ICD Code: F32.9 (4) HTN (hypertension) ICD Code: I10 (5) Hyperlipidemia ICD Code: E78.5 Assessment and Plan Back Pain Post Laminectomy PRN pain treatments Neurosurgery following PT May need SNF at discharge if nonfunctional HTN Continue baseline medications Follow BP Depression No change to treatment Hyperlipidemia No change to treatment Follow as an outpatient Trevor Brennan MD July 29, 2016 18:56
[2016-07-29] MEDS: HYDROmorphone HCL PF 1 MG/ML VIAL IV PUSH PRN (18:58)
[2016-07-29 19:29] VITALS: BP 139/66; PULSE 79; RESP 20; TEMP 99; O2SAT 95
[2016-07-29] MEDS: ENOXAPARIN SODIUM 40 MG/0.4 ML SYRINGE SQ SCH (20:48)
[2016-07-30 00:07] VITALS: BP 115/55; PULSE 74; RESP 20; O2SAT 94
[2016-07-30] MEDS: HYDROmorphone HCL PF 1 MG/ML VIAL IV PUSH PRN ×4 (02:01→22:43)
[2016-07-30 03:36] VITALS: BP 125/62; PULSE 75; RESP 20; TEMP 98.3; O2SAT 97
[2016-07-30 07:19] VITALS: BP 140/63; PULSE 70; RESP 16; TEMP 98.4; O2SAT 96
[2016-07-30] MEDS: ATENOLOL 50 MG TAB PO SCH (10:21)
[2016-07-30] MEDS: DOCUSATE SODIUM 100 MG CAP PO SCH ×2 (10:21→20:15)
[2016-07-30] MEDS: PANTOPRAZOLE SOD 20 MG DELAYED RELEASE TAB PO SCH (10:21)
[2016-07-30] MEDS: amLODIPine BESYLATE 5 MG TAB PO SCH (10:21)
[2016-07-30] MEDS: ASPIRIN 81 MG CHEW TAB CHEW SCH (10:21)
[2016-07-30] MEDS: SERTRALINE HCL 50 MG TAB PO SCH (10:22)
[2016-07-30] MEDS: TRIAMTERENE/HCTZ 37.5 MG/25 MG CAP PO SCH (10:22)
[2016-07-30] MEDS: ATORVASTATIN 20 MG TAB PO SCH (10:22)
[2016-07-30] MEDS: SODIUM CHLORIDE 0.9% FLUSH 10 ML FLUSH IV FLUSH SCH ×2 (10:23→20:15)
[2016-07-30] MEDS: ACETAMINOPHEN/HYDROcodone 325 MG/10 MG TAB PO PRN (10:26)
[2016-07-30 12:00] VITALS: BP 133/66; PULSE 74; RESP 18; TEMP 97.5; O2SAT 96
--- NOTE | 2016-07-30 13:02 | MB ---
cc: JAYME RICHMOND DATE OF CONSULTATION: 07/30/2016 REASON FOR CONSULTATION Right hip osteoarthritis. HISTORY OF PRESENT ILLNESS The patient is a 76-year-old female who started having problems with the right hip and thigh about four or five years ago. The patient was treated conservatively by several physicians for this condition. Ultimately the patient did see the neurosurgeon who felt that some of her symptoms especially around the right buttock was due to a synovial cyst that was found on imaging of the spine. She underwent surgical management for this about a year and a half ago which did relieve the buttock pain but did leave her with groin and thigh pain. The patient had significant worsening and deterioration over time. The patient had been sent to a barrel painter who has done many injections on the spine. There are some repeat images. The patient then recently underwent further neurosurgical procedure for a laminectomy by Dr. Comer. This did not seem to relieve any of her symptoms about the right leg. He did order x-rays revealing severe osteoarthritis of the right hip and the undersigned was consulted. The patient describes pain as being severe. She needs assistive devices to ambulate. The pain is worsening and especially increases with ambulation. She says she gets a chronic loud creaking sound within the hip with motion and in the past she was told this was normal. PAST MEDICAL HISTORY The patient's medical history is positive for: 1. Vertigo. 2. Osteoarthritis. 3. Hypertension. 4. Dyslipidemia. 5. Neuropathy. 6. Depression. PAST SURGICAL HISTORY Surgery on the back as described. The patient currently says she is fully healed from her outpatient procedure on the back. MEDICATIONS She is currently on a Fentanyl patch and hydrocodone 10, and reported medicines include aspirin and tramadol. ALLERGIES SULFA MEDICINES. FAMILY HISTORY Noncontributory. REVIEW OF SYSTEMS A 12-point review of systems is negative except as noted in the history of present illness. PHYSICAL EXAMINATION VITAL SIGNS: The patient's temperature is 98.4, pulse 70, respirations 16, blood pressure 140/63. GENERAL: She is awake, alert and oriented x3. She has normal affect, insight and judgment. She is in at least mild distress due to pain about the right hip. HEAD: Atraumatic. Oropharynx is moist. NECK: Supple. HEART: Regular rate and rhythm. LUNGS: Clear to auscultation bilaterally. ABDOMEN: Soft, nontender, nondistended. BACK: No CVA tenderness. EXTREMITIES: Skin about the right hip shows no wounds. She does have some scattered areas of ecchymosis about the lower extremities with some varicosities. She has 2+ dorsalis pedis pulse. No significant pretibial swelling but she does have some mild swelling about the right foot with no tenderness. Her right hip has severe restricted range of motion with significant crepitus with motion and a large creaking sound is noted with rotation. She has tenderness over the greater trochanter of at least a mild degree. She has weakness of the right hip due to pain. The left hip does not have nearly as much loss of range of motion, does not have significant pain with rotation. LABORATORY Laboratory studies show a white cell count of 8.9, hematocrit 40.5, platelets 253, creatinine 0.74, glucose 109. Urinalysis essentially unremarkable. X-RAYS I reviewed the reports and the images myself. X-ray of the hip and pelvis does not reveal any specific fractures or dislocations. The patient has severe osteoarthritis of the right hip with subluxation of the hip. There is [id number] contact. Significant osteophyte formation is noted. There is calcification of the arterial system on both sides noted. There are chronic changes around the left iliac wing as well of a moderate to severe degree. IMPRESSION 1. Status post lumbar spine laminectomy, recent. 2. Right hip severe osteoarthritis. DECISION-MAKING I do believe that this patient's symptoms about the right groin and thigh are specifically related to her severe osteoarthritis of the right hip. I have ordered and recommended for the patient to undergo a right hip intra-articular injection under fluoroscopic guidance by the radiologist and I have put these orders in. She can continue to weight bear as tolerated on the right hip. I would like to see the patient in the office in about three weeks for follow-up to see how she does following the injection. It is very possible this patient may ultimately need to undergo hip replacement surgery. The patient tells me she does not smoke. She potentially may be a good candidate to undergo surgical management for this. Will see how she does following the injection. All questions have been answered. Jayme Richmond MD /BT /12:35 PM /12:45 PM
--- NOTE | 2016-07-30 13:59 | HHI.PR ---
Subjective Remarks Plan for IR interarticular joint injection and monitoring after. Pain remains today. She is hoping to return to home tomorrow, if pain is relieved by the procedure. Objective Vital Signs Date Time Temp Pulse Resp B/P Pulse Ox O2 Delivery O2 Flow Rate FiO2 07/30/16 12:00 97.5 74 18 133/66 96 07/30/16 07:19 98.4 70 16 140/63 96 07/30/16 03:36 98.3 75 20 125/62 97 07/30/16 00:07 74 20 115/55 94 07/29/16 19:29 99.0 79 20 139/66 95 07/29/16 16:00 98.2 77 18 140/65 95 I/O 07/29/16 07/29/16 07/29/16 07/30/16 07/30/16 07/30/16 07:00 15:00 23:00 07:00 15:00 23:00 Intake Total 840 ml Balance 840 ml Intake Oral 840 ml # Voids 3 # Bowel Movements 0 Result Diagram: 07/28/1662207/28/1623 Objective Remarks GENERAL: NAD, A&Ox3 SKIN: Warm and dry. HEAD: Normocephalic. EYES: No scleral icterus. No injection or drainage. NECK: Supple, trachea midline. No JVD or lymphadenopathy. CARDIOVASCULAR: Regular rate and rhythm without murmurs, gallops, or rubs. RESPIRATORY: Breath sounds equal bilaterally. No accessory muscle use. GASTROINTESTINAL: Abdomen soft, non-tender, nondistended. MUSCULOSKELETAL: No cyanosis, or edema. BACK: Nontender without obvious deformity. No CVA tenderness. Medications and IVs Administered Medications Medications (Trade) Dose Ordered Sig/Arlene Route PRN Reason Start Time Stop Time Status Last Admin Dose Admin Sodium Chloride (NS Flush) 2 ml BID IV FLUSH 07/27/16 21:00 07/30/16 10:23 Docusate Sodium (Colace) 100 mg Q12H PO 07/27/16 21:00 07/30/16 10:21 Enoxaparin Sodium (Lovenox Inj) 40 mg Q24H SQ 07/27/16 20:00 07/29/16 20:48 Amlodipine Besylate (Norvasc) 5 mg DAILY PO 07/28/16 09:00 07/30/16 10:21 Aspirin (Aspirin Chew) 81 mg DAILY CHEW 07/28/16 09:00 07/30/16 10:21 Atenolol (Tenormin) 50 mg DAILY PO 07/28/16 09:00 07/30/16 10:21 Atorvastatin Calcium (Lipitor) 20 mg DAILY PO 07/28/16 09:00 07/30/16 10:22 Fentanyl (Duragesic 25 Mcg Patch.72 Hr) 1 patch Q72H T-DERMAL 07/27/16 21:00 07/27/16 21:25 Acetaminophen/ Hydrocodone Bitart (Glenelg 10-325 Mg) 1 tab Q6H PRN PO PAIN 1 TO 10 07/27/16 19:45 07/30/16 10:26 Triamterene/HCTZ (Dyazide 37.5-25 Mg) 1 cap DAILY PO 07/28/16 09:00 07/30/16 10:22 Pantoprazole Sodium (Protonix) 20 mg DAILY PO 07/28/16 09:00 07/30/16 10:21 Sertraline HCl (Zoloft) 25 mg DAILY PO 07/28/16 09:00 07/30/16 10:22 Hydromorphone HCl (Dilaudid Pf Inj) 0.5 mg Q4H PRN IV PUSH BREAKTHROUGH PAIN 07/28/16 12:15 07/30/16 06:33 A/P Problem List: (1) H/O laminectomy ICD Code: Z98.890 (2) Back pain ICD Code: M54.9 (3) Depression ICD Code: F32.9 (4) HTN (hypertension) ICD Code: I10 (5) Hyperlipidemia ICD Code: E78.5 Assessment and Plan Back Pain Post Laminectomy PRN pain treatments Neurosurgery following Etiology suspected to be more related to her right hip than her laminectomy PT Right Hip Osteoarthritis IR intrarticular joint injection (steroids) Follow up in AM If improvement is seen, could discharge to home tomorrow HTN Continue baseline medications Follow BP Depression No change to treatment Hyperlipidemia No change to treatment Follow as an outpatient Trevor Brennan MD July 30, 2016 13:59
[2016-07-30] MEDS ORDERED: TRIAMCINOLONE ACETONIDE 40 MG/ML VIAL ONE (14:46)
[2016-07-30] MEDS ORDERED: BUPIVACAINE HCL PF 0.75% 30 ML VIAL ONE (14:46)
--- NOTE | 2016-07-30 15:23 | PD.RAD ---
Post Procedure Progress Note Pre Procedure Diagnosis: (1) Right hip pain Post Procedure Diagnosis: (1) Right hip pain Procedure Date: July 30, 2016 Supervising Radiologist: Trevor Bonner Anesthesia: Local Plan of Activity Patient to Unit: Nursing Unit Patient Condition: Fair Additional Comments: Uncomplicated steroid administration into the right hip See PACS Report for procedural detail/treatment Trevor Bonner MD July 30, 2016 15:23
--- NOTE | 2016-07-30 15:45 | RADRPT ---
EXAM DATE/TIME: 07/30/2016 15:48 [facility] COMPARISON: No previous studies available for comparison. INDICATIONS : Patient is in need of a right hip injection for chronic hip pain. MEDICAL HISTORY : History of vertigo, osteoarthritis, HTN, dyslipidemia, neuropathy, bulging disc, bilateral lung cance r with tumor removal. SURGICAL HISTORY : History of coronary stent, laminectomy, cervical fusion, tonsillectomy, tubal ligation. ENCOUNTER: Initial ACUITY: 1 month PAIN SCORE: 10/10 LOCATION: Right hip FLUORO TIME: 1.3 minutes IMAGE SERIES: 2 CONTRAST: 1cc Visipaque (iodixanol) DEVICE: 20 gauge needle was placed into the right MEDICATIONS: 1.) 1 cc triamcinolone (Kenalog) IA 2.) 3 cc Lidocaine IA 3.) 4 cc bupivicaine (Marcaine) IA RESPONSE: Pre procedure pain level was 10/10. Post procedure pain level was 10/10. PROCEDURE : The risks, benefits and alternatives to the procedure were explained and verbal and written consent w as obtained. The site was prepped in sterile fashion. Full sterile technique was used, including ca p, mask, sterile gloves and gown and a large sterile sheet. Hand hygiene and 2% chlorhexidine and/or betadine/alcohol prep was utilized per protocol for cutaneous antisepsis. The skin and subcutaneous tissues were infiltrated with local anesthetic solution. Under sterile conditions and using aseptic technique with fluoroscopic guidance the joint was punctur ed and positive contrast was injected to confirm intra-articular position. Following this, the presc ribed mixture of Kenalog and local anesthetics was injected. The patient tolerated the procedure wel l and there were no complications. CONCLUSION: Uncomplicated therapeutic injection performed under fluoroscopic guidance. Trevor Bonner MD on July 30, 2016 at 15:42 Board Certified Radiologist. This report was verified electronically.
[2016-07-30 16:13] VITALS: BP 147/70; PULSE 71; RESP 18; TEMP 98.1; O2SAT 95
[2016-07-30] MEDS: ENOXAPARIN SODIUM 40 MG/0.4 ML SYRINGE SQ SCH (20:14)
[2016-07-30] MEDS: fentaNYL 25 MCG/HR PATCH T-DERMAL SCH (20:15)
[2016-07-30 20:45] VITALS: BP 128/65; PULSE 77; RESP 18; TEMP 98.9; O2SAT 93
[2016-07-31] VITALS: BP 129/70; PULSE 68; RESP 18; TEMP 96.8; O2SAT 96
[2016-07-31] MEDS: HYDROmorphone HCL PF 1 MG/ML VIAL IV PUSH PRN (03:27)
[2016-07-31 04:26] VITALS: BP 128/66; PULSE 70; RESP 16; TEMP 96.5; O2SAT 94
[2016-07-31 07:24] VITALS: BP 159/80; PULSE 74; RESP 18; TEMP 97.5; O2SAT 93
[2016-07-31] MEDS: SERTRALINE HCL 50 MG TAB PO SCH (10:33)
[2016-07-31] MEDS: DOCUSATE SODIUM 100 MG CAP PO SCH (10:33)
[2016-07-31] MEDS: PANTOPRAZOLE SOD 20 MG DELAYED RELEASE TAB PO SCH (10:33)
[2016-07-31] MEDS: ATENOLOL 50 MG TAB PO SCH (10:33)
[2016-07-31] MEDS: ATORVASTATIN 20 MG TAB PO SCH (10:34)
[2016-07-31] MEDS: SODIUM CHLORIDE 0.9% FLUSH 10 ML FLUSH IV FLUSH SCH (10:34)
[2016-07-31] MEDS: amLODIPine BESYLATE 5 MG TAB PO SCH (10:34)
[2016-07-31] MEDS: TRIAMTERENE/HCTZ 37.5 MG/25 MG CAP PO SCH (10:34)
[2016-07-31] MEDS: ASPIRIN 81 MG CHEW TAB CHEW SCH (10:34)
--- NOTE | 2016-07-31 11:29 | HHI.DS ---
Discharge Summary Admission Date Jul 27, 2016 at 7:16 pm Discharge Date: July 31, 2016 Admitting Diagnosis dizziness, unable to walk (1) Unsteadiness ICD Code: R26.81 Diagnosis: Principal (2) Dizziness ICD Code: R42 Diagnosis: Secondary (3) Back pain ICD Code: M54.9 Diagnosis: Principal (4) H/O laminectomy ICD Code: Z98.890 Diagnosis: Secondary (5) Depression ICD Code: F32.9 Diagnosis: Secondary (6) Hyperlipidemia ICD Code: E78.5 Diagnosis: Secondary (7) HTN (hypertension) ICD Code: I10 Diagnosis: Secondary Procedures IR interarticular joint injection with steroids 07/30/16 Brief History - From Admission Mrs. Pal is a 76 year old female. She reports a worsening of her laminectomy post op pain recently and has come into the hospital for further evaluation and pain management. The pain is preventing her from ambulating for more than a few feet and standing for any time than more than a couple of minutes. She feels it worsened recently. No fevers or chills. No leukocytosis. She also reports occasional dizziness, which sounds like a chronic BPV as this has occurred prior to her laminectomy also. No other complaints. CBC/BMP: 07/28/16 0623 07/28/16 0623 Imaging Last Impressions Therapeutic Injection 07/30/16 0000 Signed Impressions: Service Date/Time: Saturday, July 30, 2016 15:48 - CONCLUSION: Uncomplicated therapeutic injection performed under fluoroscopic guidance. Trevor Bonner MD Lumbar Spine MRI 07/28/16 0000 Signed Impressions: Service Date/Time: Thursday, July 28, 2016 15:00 - CONCLUSION: Subacute appearing mild compressive injury at L3 and nonspecific changes associated with recent laminotomy. See above discussion. Duke Pastor MD Hip and Pelvis X-Ray 07/28/16 0000 Signed Impressions: Service Date/Time: Thursday, July 28, 2016 14:21 - CONCLUSION: Severe degenerative arthritic change right hip. No acute bony findings. Duke Pastor MD Chest X-Ray 07/27/16 5669 Signed Impressions: Service Date/Time: Wednesday, July 27, 2016 14:43 - CONCLUSION: Possible left upper lobe nodule and noncontrast chest CT is recommended to further characterize. Velvet Collins MD Head CT 07/27/16 0000 Signed Impressions: Service Date/Time: Wednesday, July 27, 2016 17:51 - CONCLUSION: Slight atrophic and small vessel ischemic changes without any evidence for acute hemorrhage or mass effect. Velvet Collins MD PE at Discharge GENERAL: NAD, A&Ox3 SKIN: Warm and dry. HEAD: Normocephalic. EYES: No scleral icterus. No injection or drainage. NECK: Supple, trachea midline. No JVD or lymphadenopathy. CARDIOVASCULAR: Regular rate and rhythm without murmurs, gallops, or rubs. RESPIRATORY: Breath sounds equal bilaterally. No accessory muscle use. GASTROINTESTINAL: Abdomen soft, non-tender, nondistended. MUSCULOSKELETAL: No cyanosis, or edema. limited ROM at back and hips secondary to OA, most significant at right hip BACK: Nontender without obvious deformity. No CVA tenderness. Pt update on day of discharge Feeling better, though pain and weakness with need for walker remains. Medically stable for discharge with home PT. Hospital Course Mrs. Pal is a 76 year old female. She came in for inability to ambulate and pain at the lower back and right hip. She had a recent laminectomy, but the cause was found to be related to her right hip. Ortho was consulted and she had IR interarticular joint injection with steroids. Overnight she has found some improvement in her pain from this and is currently able to ambulate. Medically stable for discharge at this point. She will continue to use her walker and follow up with ortho as an out patient. Pt Condition on Discharge: Stable Discharge Disposition: Disch w/ Home Health Serv Discharge Time: <= 30 minutes Discharge Instructions DIET: Follow Instructions for: As Tolerated, No Restrictions Activities you can perform: Regular-No Restrictions Follow up Referrals: Orthopedics with Grzegorz Gamez MD Continued Medications: Amlodipine (Amlodipine) 5 Mg Tab 5 MG PO DAILY Days 90 Aspirin (Aspirin) 81 Mg Chew 81 MG CHEW DAILY Ref 0 TAB Atenolol (Atenolol) 50 Mg Tab 50 MG PO DAILY Blood Pressure Management Ref 0 TAB Atorvastatin (Atorvastatin) 20 Mg Tab 20 MG PO DAILY Days 90 Fentanyl Patch 72 HR (Duragesic Patch 72 HR) 25 Mcg/Hr Patch 25 MCG T-DERMAL Q72H Remove old patch when new one placed. Pain Management #10 Ref 0 PATCH Hydrocodone-Acetaminophen ([place]) 10-325 Mg Tab 1 TAB PO Q6H PRN PAIN #60 Ref 0 TAB [place]-3 Fatty Acids (Fish Oil) 1,000 Mg Cap 100 MG PO DAILY Omeprazole (Omeprazole) 20 Mg Cap 20 MG PO DAILY Days 90 Sertraline (Sertraline) 25 Mg Tab 25 MG PO DAILY Days 90 Tramadol (Tramadol) 50 Mg Tab 50 MG PO DAILY Days 90 Triamterene-Hydrochlorothiazide (Triamterene-Hydrochlorothiazide) 37.5-25 Mg Cap 1 CAP PO DAILY #30 Ref 0 CAP Trevor Brennan MD July 31, 2016 11:29 am
[2016-07-31 12:18] VITALS: BP 134/70; PULSE 70; RESP 17; TEMP 97.9; O2SAT 94
--- NOTE | 2016-07-31 13:11 | PD.ORT.PN ---
Subjective Subjective Remarks Patient is sitting on the side of the bed with decreased pain to the right hip. Patient states she still has some mile pain but that overall her pain has improved significantly with the recent injection to the right hip. Patient denies tingling or numbness to the right lower extremity. Objective Vitals Vital Signs Date Time Temp Pulse Resp B/P Pulse Ox O2 Delivery O2 Flow Rate FiO2 07/31/16 12:18 97.9 70 17 134/70 94 07/31/16 07:24 97.5 74 18 159/80 93 07/31/16 04:26 96.5 70 16 128/66 94 07/31/16 00:00 96.8 68 18 129/70 96 07/30/16 20:45 98.9 77 18 128/65 93 07/30/16 16:13 98.1 71 18 147/70 95 I/O 07/30/16 07/30/16 07/30/16 07/31/16 07/31/16 07/31/16 07:00 15:00 23:00 07:00 15:00 23:00 Intake Total 240 ml Balance 240 ml Intake Oral 240 ml # Voids 3 1 # Bowel Movements 1 Result Diagram: 07/28/16 0623 07/28/16 0623 Procedures Right hip fluoroscopically guided cortisone injection Objective Remarks The patient is sitting on the side of the bed with her right leg crossed over the left. Patient has moderately restricted ROM of the hip with IR and ER. The patient has no tenderness over the greater trochanter. Patient is NVI. 2+ pedal pulse. No swelling to leg. Skin intact to the right hip. Assessment & Plan Assessment and Plan Right hip severe OA The patient received the IA cortisone injection by interventional radiology that was ordered. It does appear that this procedure was beneficial. I discussed the procedure with the patient and how this may continue to improve over the next several days. The patient has severe OA of the right hip and may ultimately require a right ASHLEY, however I would recommend conservative management at this time based on her overall improvement with the injection. The patient will f/u in the office with Dr. Gamez in 2 weeks. Trevor Mratinez July 31, 2016 13:11
== END 2016-07-31 14:13 | disposition home or self-care (01) ==
LOC: NEPE 14:03 → NEDA 19:16 → NEPFCDU 21:46
PROVIDERS: ADMIT Hospitalist; ATTEND Hospitalist
DX: M16.11 Unilateral primary osteoarthritis, right hip (principal); R42 Dizziness and giddiness; F32.9 Major depressive disorder, single episode, unspecified; R26.81 Unsteadiness on feet; E78.5 Hyperlipidemia, unspecified; I10 Essential (primary) hypertension; E78.00 Pure hypercholesterolemia, unspecified; G62.9 Polyneuropathy, unspecified; Z98.890 Other specified postprocedural states; Z79.82 Long term (current) use of aspirin; Z88.2 Allergy status to sulfonamides; Z98.1 Arthrodesis status
CPT/HCPCS: 20610; 70450; 71010; 72158; 73502; 77002; 80048; 80053; 81001; 84484; 85025; 85610; 85730; 93005; 97162; 99285; A9579; G0378; G8987; G8988; J1170; J1650; J3301; J7040

== ENCOUNTER 2016-09-15 11:44 | Inpatient (IN) | payer OTHER, MEDICARE ==
[~2016-09-15] VITALS: Ht 160 cm; Wt 76.0 kg
[~2016-09-15 11:44] MED LIST changes: -ASPI325T PO; -COMMODE 3-IN-11 MIS; -COQ-30CA2 PO; -ENOX40P SQ; -PERC10TA27 PO; -WALKER WHEELS/F1 MIS
[2016-09-15] MEDS ORDERED: COQ-30CA2 PO (15:32)
--- NOTE | 2016-10-01 06:59 | HHI.DCPOC ---
Discharge Care Plan Diagnosis: (1) Osteoarthritis of right hip (2) Status post total hip replacement, right Your Health Problems Are: Difficulty with ADL Goals to Promote Your Health * To prevent worsening of your condition and complications * To maintain your health at the optimal level Directions to Meet Your Goals Take your medications as prescribed Follow your dietary instruction Follow activity as directed Keep your appointments as scheduled Take your immunizations and boosters as scheduled If your symptoms worsen call your PCP, if no PCP go to Urgent Care Center or Emergency Room Smoking is Dangerous to Your Health. Avoid second hand smoke Call the 24-hour hour crisis hotline for domestic abuse at Trevor Martinez Oct 01, 2016 06:59
--- NOTE | 2016-10-01 07:00 | HHI.FF ---
Face to Face Verification Diagnosis: (1) Osteoarthritis of right hip (2) Status post total hip replacement, right Physical Therapy Gait training, Transfer training, bed to chair Hip: Total hip Right LE Weight Bearing: WB as tolerated Right LE Range of Motion: Active ROM Nursing Nursing: Jerry teaching, Dressing changes Dressing Changes: Daily dressing change I have seen patient Carlene Pal on 10/01/16. My clinical findings support the need for the requested home health care services because: Limited ability to care for self High risk of falls I certify that my clinical findings support that this patient is homebound because: Post-op weakness Unsteady gait/balance Trevor Martinez Oct 01, 2016 07:00
[2016-10-01] MEDS ORDERED: WALKER WHEELS/F1 MIS (07:01)
[2016-10-01] MEDS ORDERED: COMMODE 3-IN-11 MIS (07:01)
[2016-10-01 07:44] VITALS: BP 161/77; PULSE 70; RESP 16; TEMP 97.9; O2SAT 100
[2016-10-01] MEDS ORDERED: POVIDONE IODINE 7.5% SCRUB 118 ML BOTTLE TOPICAL SCH (08:15)
[2016-10-01] MEDS ORDERED: POVIDONE IODINE 5% (ANTISEPSIS KIT) 4 APPLICATIONS EACH NARE PRN (08:15)
[2016-10-01] MEDS ORDERED: LACTATED RINGER'S 1000 ML IV PRN (08:15)
[2016-10-01] MEDS ORDERED: METOPROLOL TARTRATE 25 MG TAB PO PRN (08:15)
[2016-10-01] MEDS ORDERED: ceFAZolin 2 GM PREMIX 50 ML IV SCH (08:15)
[2016-10-01] MEDS ORDERED: VANCOMYCIN 1000 MG/NS 250 ML (for <70 kg) IV SCH ×2 (08:15)
[2016-10-01] MEDS ORDERED: INSULIN HUMAN REGULAR 1,000 UNITS/10 ML VIAL SQ PRN (08:15)
[2016-10-01] MEDS ORDERED: CHLORHEXIDINE GLUCONATE 2 % 1 PACK (2 CLOTHS) TOPICAL PRN (08:15)
[2016-10-01] MEDS ORDERED: SODIUM CHLORID 0.9% 500 ML IV PRN (08:15)
[2016-10-01] MEDS ORDERED: SODIUM CHLORIDE 0.9% IV SCH ×2 (08:30→12:00)
[2016-10-01] MEDS ORDERED: DEXAMETHASONE SOD PHOS 20 MG/5 ML VIAL IV ONE (08:30)
[2016-10-01] MEDS ORDERED: EXPAREL PERI-ARTICULAR INJECTION (TOTAL VOL. 60 ML) P-ARTICULR SCH ×2 (08:30)
[2016-10-01] MEDS ORDERED: TRANEXAMIC ACID IV SCH ×2 (08:30→12:00)
[2016-10-01] MEDS ORDERED: HYDROmorphone HCL PF 2 MG/ML VIAL ONE (09:02)
[2016-10-01] MEDS ORDERED: GENTAMICIN SULFATE 80 MG/2 ML VIAL ONE (09:05)
[2016-10-01] MEDS ORDERED: MIDAZOLAM HCL 2 MG/2 ML VIAL ONE (09:38)
[2016-10-01] MEDS ORDERED: ACETAMINOPHEN 1000 MG/100 ML VIAL IV ONE (09:38)
[2016-10-01] MEDS ORDERED: fentaNYL CITRATE 250 MCG/5 ML AMP ONE (09:38)
[2016-10-01] MEDS ORDERED: ePHEDrine/NS 25 MG/5 ML SYR IV ONE (11:25)
[2016-10-01] MEDS ORDERED: PROPOFOL 200 MG/20 ML AMP IV ONE (11:25)
[2016-10-01] MEDS ORDERED: LACTATED RINGER'S 1000 ML INJ 1,000 ML IV ONE (11:26)
[2016-10-01] MEDS ORDERED: NEOSTIGMINE 3 MG/3 ML SYR IV ONE (11:26)
[2016-10-01] MEDS ORDERED: PHENYLEPH/NS 1000 MCG/10 ML SYR IV ONE (11:26)
[2016-10-01] MEDS ORDERED: ONDANSETRON HCL 4 MG/2 ML VIAL IV PUSH ONE (11:26)
--- NOTE | 2016-10-01 11:37 | PD.OP ---
cc: Grzegorz Gamez MD Operative Report Date of Surgery: Oct 01, 2016 Preoperative Diagnosis: Right hip severe osteoarthritis Postoperative Diagnosis: Same Procedure: Right total hip arthroplasty Anesthesia: Gen. Surgeon: Grzegorz Gamez Underwater Hunter(s): BIANKA Green The surgical procedure was assisted by my Advanced Registered Nurse Practitioner. My DESKTOP MANAGER presence was necessary throughout this case for the manipulation and positioning of the surgical extremity. My DESKTOP MANAGER was assisting me throughout the duration of this procedure. The skill set of an Advance Registered Nurse Practitioner was medically necessary to complete this procedure. During the surgical case, the surgical product sales consultant was working at the back table and the Advance Registered Nurse Practitioner was directly assisting me. Operation and Findings: IMPLANT DESCRIPTION: 1. Emmalena Gription Cup, acetabular size 54. 2. Emmalena AltrX polyethylene, neutral. 4. Corail femoral stem size 12, no collar, standard offset. 5. Femoral head/neck metal, 36, -2. ESTIMATED BLOOD LOSS: 250 cc. JUSTIFICATION FOR PROCEDURE: The patient has end-stage osteoarthritis to the hip. There is an attached conservative measures pathway form in the chart that describes the nonoperative measures that were undertaken prior to consideration of surgical management. The patient understood the risks and benefits of surgical management. See my office notes for further details. PROCEDURE: The patient was brought back to the operative theatre. Adequate anesthesia was obtained. The patient received intravenous vancomycin and Ancef. The patient was carefully placed on the operative table. The lower extremity was prepped and draped in the usual sterile fashion. Fluoroscopic images were obtained. We made a standard anterior incision over the hip. We dissected through the TFL fascia, exposing the anterior capsule. Arthrotomy was performed in a T-shaped fashion. The capsule was tagged with a #2 FiberWire. End-stage arthritis was identified. Osteotomy was performed through the femoral neck exposing the acetabulum. Remnants of the labrum were resected and osteophytes were removed. We sequentially reamed the acetabulum. We trialed the hip and placed the final cup into position. This was done under fluoroscopic guidance to obtain the appropriate inclination and anteversion. A manhole cover was placed into the acetabular component. We then placed the final polyethylene into position and confirmed that it was well seated. Capsular attachments on the calcar and the inner aspect of the greater trochanter were resected. On the proximal aspect of the femur we used a rongeur , box osteotome, canal finder, sequential broaches and lateralizing rasp. We calcar planed the proximal femur. Then thoroughly irrigated the wound. We trialed the hip with the appropriate size stem. We placed the final stem in to position and trialed again. The hip was stable while it was externally rotated 70 degrees when the leg was lowered to the floor. The final head was applied, and final fluoroscopic images were obtained. The wound was thoroughly irrigated again. Interarticular injection of liposomal bupivacaine was given. The capsule was closed with #2 FiberWire and #1 Vicryl. The deep fascia was closed with a #2 Stratafix, followed by 2-0 Vicryl in the skin and qiana. Postop plan is to weight-bear as tolerated. DVT prophylaxis will be performed with Judith, FELICIANO pradhan, early mobilization, and Lovenox followed by aspirin. Grzegorz Gamez MD Oct 01, 2016 11:37
[2016-10-01] MEDS ORDERED: ENOX40P SQ (11:38)
[2016-10-01] MEDS ORDERED: PERC10TA27 PO (11:38)
[2016-10-01] MEDS ORDERED: ASPI325T PO (11:38)
[2016-10-01] MEDS ORDERED: NALOXONE HCL 0.4 MG/ML AMP IV PRN (11:45)
[2016-10-01] MEDS ORDERED: diphenhydrAMINE HCL 50 MG/ML VIAL IV PRN (11:45)
[2016-10-01] MEDS ORDERED: MORPHINE SULFATE 4 MG/ML INJ IV PUSH PRN (11:45)
[2016-10-01] MEDS ORDERED: SODIUM CHLORIDE 0.9% FLUSH 5 ML FLUSH IVF PRN (11:45)
[2016-10-01] MEDS ORDERED: Post-op Orders (for Pharmacy) MISC XX ONE (11:45)
[2016-10-01] MEDS ORDERED: ONDANSETRON HCL 4 MG/2 ML VIAL IVP PRN (11:45)
[2016-10-01] MEDS ORDERED: BISACODYL 10 MG SUPP RECTAL PRN (11:45)
[2016-10-01] MEDS ORDERED: ALUMINUM/MAGNESIUM/SIMETH 30 ML CUP PO PRN (11:45)
[2016-10-01] MEDS ORDERED: MAGNESIUM HYDROXIDE SUSP 30 ML CUP PO PRN (11:45)
[2016-10-01] MEDS ORDERED: *morphine SULFATE 8 MG/ML PERIprocedure ONLY ONE (12:25)
--- NOTE | 2016-10-01 13:40 | RADRPT ---
EXAM DATE/TIME: 10/01/2016 10:07 [facility] COMPARISON: No previous studies available for comparison. INDICATIONS : Right total hip replacement. MEDICAL HISTORY : None. SURGICAL HISTORY : None. ENCOUNTER: Initial ACUITY: 1 day PAIN SCORE: Non-responsive. LOCATION: Right hip. FINDINGS: Patient is status post placement of a right hip prosthesis. There is good position and alignment of t he prosthesis and bony structures. The bony structures are grossly intact. Postsurgical changes are p resent. CONCLUSION: Good position and alignment on this postoperative examination. Tello Michaels MD on October 01, 2016 at 13:37 Board Certified Radiologist. This report was verified electronically.
--- NOTE | 2016-10-01 13:55 | RADRPT ---
EXAM DATE/TIME: 10/01/2016 13:04 [facility] COMPARISON: HIP RIGHT (AP&LAT 2/3VWS) W AP PELVIS, July 28, 2016, 14:21. INDICATIONS : Post op right total hip. MEDICAL HISTORY : None. SURGICAL HISTORY : None. ENCOUNTER: Initial ACUITY: 1 day PAIN SCORE: 7/10 LOCATION: Right Hip. FINDINGS: Postsurgical features of right hip arthroplasty. Arthroplasty components are in anatomic alignment. N o significant acute bony fracture. Immediate postsurgical soft tissue features. CONCLUSION: 1. Status post right hip arthroplasty in anatomic alignment without significant acute bony fracture. Lam Liriano MD on October 01, 2016 at 13:52 Board Certified Radiologist. This report was verified electronically.
--- NOTE | 2016-10-01 14:02 | PD.CONS ---
[facility] By [facility]opedist, Dr. Gamez Reason for Consult Medical Management Primary Care Physician Danny Villegas MD Diagnoses: History of Present Illness Patient is a 76-year-old female with primary medical history of osteoarthritis, HTN, HLD, neuropathy, depression who came into the hospital for elective hip surgery. She is status post right hip arthroplasty done by Dr. Gamez today. Previously had laminectomy and was seen at the hospital secondary to postop pain patient had joint steroid injection. States back pain has resolved and prior to surgery her her hip was painful and was affecting her ambulation. Patient verified her past medical and surgical history. States currently her right hip pain is 5/10, described as achy, not radiating anywhere , relieved by pain medications. Reports she drinks a couple whiskey every night. Otherwise, denies SOB/ dyspnea. Denies chest pain, palpitations, headaches, dizziness. Denies fevers, chills, n/v/d. Denies dysuria. 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 Lovenox Inj (Enoxaparin Sodium) 40 Mg/0.4 Ml Syr 40 Mg SQ DAILY Start Aspirin after Lovenox is completed. Percocet (Oxycodone-Acetaminophen) 10-325 mg Tab 1-2 Tab PO Q4H PRN Duragesic Patch 72 HR (Fentanyl) 25 Mcg/Hr Patch 25 Mcg T-DERMAL Q72H Remove old patch when new one placed. [place] (Hydrocodone-Acetaminophen) 10-325 Mg Tab 1 Tab PO Q6H PRN Reported Coq-10 (Coenzyme Q10 (Ubidecarenone)) 30 Mg Cap 1 Caplet PO DAILY Atenolol 50 Mg Tab 50 Mg PO DAILY Fish Oil ([place]-3 Fatty Acids) 1,000 Mg Cap 100 Mg PO DAILY Aspirin 81 Mg Chew 81 Mg CHEW DAILY Triamterene-Hydrochlorothiazide 37.5-25 Mg Cap 1 Cap PO DAILY Tramadol (Tramadol HCl) 50 Mg Tab 50 Mg PO DAILY 90 Days Atorvastatin (Atorvastatin Calcium) 20 Mg Tab 20 Mg PO DAILY 90 Days Amlodipine (Amlodipine Besylate) 5 Mg Tab 5 Mg PO DAILY 90 Days Sertraline (Sertraline HCl) 25 Mg Tab 25 Mg PO DAILY 90 Days Omeprazole 20 Mg Cap 20 Mg PO DAILY 90 Days Active Ordered Medications Current Medications Medications (Trade) Dose Ordered Sig/Arlene Route Start Time Stop Time Status Last Admin Lactated Ringer's 1,000 ml @ 30 mls/hr Q24H PRN IV 10/01/16 08:15 10/04/16 08:14 10/01/16 08:00 (NS 500 ml Inj) 500 ml @ 30 mls/hr [id number] PRN IV 10/01/16 08:15 10/04/16 08:14 Povidone Iodine 1 applic 1 applic ONCE TOPICAL 10/01/16 08:15 10/04/16 08:14 Tranexamic Acid 695 mg/Sodium Chloride 106.95 ml @ 200 mls/ hr ONCE IV 10/01/16 08:30 10/01/16 14:30 10/01/16 10:01 (Exparel Pf 1.3% Inj/NS Inj) 60 ml @ 120 mls/hr ONCE P-ARTICULR 10/01/16 08:30 10/01/16 14:30 10/01/16 10:25 (Norvasc) 5 mg DAILY PO 10/02/16 09:00 UNV (Tenormin) 50 mg DAILY PO 10/02/16 09:00 UNV (Lipitor) 20 mg DAILY PO 10/02/16 09:00 UNV (Dyazide 37.5-25 Mg) 1 cap DAILY PO 10/02/16 09:00 UNV Non-Formulary Medication 20 mg DAILY PO 10/02/16 09:00 UNV Non-Formulary Medication 25 mg 25 mg DAILY PO 10/02/16 09:00 UNV (NS 1000 ml Inj) 1,000 ml @ 100 mls/hr Q10H IV 10/01/16 11:34 UNV (NS Flush) 2 ml UNSCH PRN IVF 10/01/16 11:45 UNV IV Flush 2 ml 2 ml BID IVF 10/01/16 21:00 UNV (Ancef Inj/NS Inj) 100 ml @ 200 mls/hr Q6H IV 10/01/16 11:45 10/02/16 00:14 UNV (Post-op Orders (for Pharmacy)) STAT ONCE XX 10/01/16 11:45 10/01/16 11:46 UNV (Decadron Inj) 10 mg ONCE ONCE IV 10/02/16 07:45 10/02/16 07:46 UNV Enoxaparin Sodium 40 mg 40 mg Q24H SQ 10/01/16 11:45 10/10/16 11:46 UNV (Cyklokapron Inj/ NS Inj) 106.95 ml @ 200 mls/ hr UNSCH IV 10/01/16 12:00 10/01/16 17:00 10/01/16 13:04 (Theragran M Tab) 1 tab BID PO 10/02/16 21:00 12/01/16 20:59 UNV (Zofran Inj) 4 mg Q6H PRN IVP 10/01/16 11:45 UNV (Colace) 100 mg BID PO 10/02/16 21:00 UNV (Mag-Al Plus Susp Liq) 30 ml Q6H PRN PO 10/01/16 11:45 UNV (Ambien) 5 mg HS PRN PO 10/01/16 11:45 UNV (Dulcolax Supp) 10 mg DAILY PRN DE 10/01/16 11:45 UNV (Milk Of Magnesia Liq) 30 ml DAILY PRN PO 10/01/16 11:45 UNV (Narcan Inj) 0.4 mg UNSCH PRN IV 10/01/16 11:45 UNV (Benadryl Inj) 25 mg Q6H PRN IV 10/01/16 11:45 UNV (Morphine Inj) 2 mg Q3H PRN IV PUSH 10/01/16 11:45 UNV (Percocet 10-325 Mg) 1 tab Q4H PRN PO 10/01/16 11:45 UNV (Percocet 10-325 Mg) 2 tab Q4H PRN PO 10/01/16 11:45 UNV Family History Mom of lung cancer age 88 Dad of cerebral hemorrhage age 52 Social History Reports drinking 2 whiskeys every night Denies tobacco use Denies illicit drug use Physical Exam Vital Signs Vital Signs Date Time Temp Pulse Resp B/P Pulse Ox O2 Delivery O2 Flow Rate FiO2 10/01/16 13:30 74 12 123/58 99 10/01/16 13:15 79 14 127/60 99 10/01/16 13:00 75 15 110/57 97 10/01/16 12:45 75 12 121/64 98 10/01/16 12:30 90 14 131/66 100 10/01/16 12:15 91 12 133/65 100 Nasal Cannula 2 10/01/16 12:04 97.6 81 16 134/63 100 Nasal Cannula 2 10/01/16 07:44 97.9 70 16 161/77 100 Physical Exam GENERAL: This is a well-nourished, well-developed patient, in no apparent distress. SKIN: No rashes, ecchymoses or lesions. Cool and dry. HEAD: Atraumatic. Normocephalic. No temporal or scalp tenderness. EYES: Pupils equal round and reactive. Extraocular motions intact. No scleral icterus. No injection or drainage. ENT: Nose without bleeding. Throat without erythema. Uvula midline. Airway patent. Dry oral mucosa. NECK: Trachea midline. No JVD or lymphadenopathy. CARDIOVASCULAR: Regular rate and rhythm without murmurs, gallops, or rubs. RESPIRATORY: Clear to auscultation. Breath sounds equal bilaterally. No wheezes , rales, or rhonchi. GASTROINTESTINAL: Abdomen soft, non-tender, nondistended. Hypoactive bowel sounds. MUSCULOSKELETAL: Extremities without clubbing, cyanosis, right hip +1 edema. No joint tenderness, effusion, or edema noted. NEUROLOGICAL: Awake and alert. . Motor and sensory grossly within normal limits. Five out of 5 muscle strength in all muscle groups. Normal speech. Laboratory Laboratory Tests Test 10/01/16 07:55 Blood Type A POSITIVE Antibody Screen NEGATIVE Imaging Last Impressions Hip X-Ray 10/01/16 0000 Signed Impressions: Service Date/Time: Saturday, October 01, 2016 10:07 - CONCLUSION: Good position and alignment on this postoperative examination. Tello Michaels MD Assessment and Plan Problem List: (1) H/O laminectomy ICD Code: Z98.890 Status: Acute (2) Osteoarthritis of right hip ICD Code: M16.11 Status: Acute (3) Unsteadiness ICD Code: R26.81 Status: Acute (4) HTN (hypertension) ICD Code: I10 Status: Chronic (5) Hyperlipidemia ICD Code: E78.5 Status: Chronic (6) Depression ICD Code: F32.9 Status: Acute (7) Status post total hip replacement, right ICD Code: Z96.641 Status: Acute Assessment and Plan Patient is a 76-year-old female with primary medical history of osteoarthritis, HTN, HLD, neuropathy, depression who came into the hospital for elective hip surgery. She is status post right hip arthroplasty done by Dr. Gamez. S/P right hip arthroplasty Osteoarthritis Chronic Pain - Patient received Decadron 10 mg 1, cefazolin 1 IV, vancomycin 1 IV - Pain management - Managed by Orthopedics HTN Controlled. - Continue home medications amlodipine, atenolol, triamterene hydrochlorothiazide HLD - Continue atorvastatin - Monitor BP trend, controlled BP Alcohol use strongly recommended to stop drinking alcohol. - Couple of whiskey every night - CIWA, monitor for withdrawals - Ativan when necessary DVT prop Lovenox per orthopedic patient seen in PACU with PA, will follow along with you, follow electrolytes in am tomorrow. the patient was examined, discussed about Alcohol abuse and dependence. Code Status Full code Discussed Condition With Patient, nursing, . Toby Lunsford Oct 01, 2016 14:02 Marvin Acosta MD Oct 01, 2016 15:01
[2016-10-01] MEDS ORDERED: FLUMAZENIL 0.5 MG/5 ML VIAL IV PUSH PRN (15:15)
[2016-10-01] MEDS ORDERED: LORazepam 2 MG/ML VIAL IV PUSH PRN (15:15)
[2016-10-01] MEDS ORDERED: DO NOT ADM ANY ANTICOAGULANT DRUGS PRN (16:00)
[2016-10-01] MEDS: THIAMINE INJ 100 MG in SODIUM CHLORIDE 0.9% INJ 100 ML IV SCH (16:53)
[2016-10-01] MEDS: MULTIVITAMIN INJ 10 ML, FOLIC ACID INJ 1 MG in SODIUM CHLORID 0.9% 500 ML INJ 500 ML IV SCH (16:54)
[2016-10-01] MEDS: oxyCODONE/ACETAMINOPHEN 10 MG/325 MG TAB PO PRN ×2 (17:25→21:38)
[2016-10-01 18:06] VITALS: BP 104/51; PULSE 77; RESP 17; TEMP 98.1; O2SAT 94
[2016-10-01 19:45] VITALS: O2SAT 94
[2016-10-01 20:00] VITALS: BP 102/54; PULSE 77; RESP 18; TEMP 98.3; O2SAT 93
[2016-10-01] MEDS ORDERED: ZOLPIDEM TARTRATE 5 MG TAB PO PRN (21:00)
[2016-10-01] MEDS: SODIUM CHLORIDE 0.9% FLUSH 5 ML FLUSH IVF SCH (21:40)
[2016-10-01] MEDS: SODIUM CHLOR 0.9% 1000 ML INJ 1,000 ML IV SCH (21:54)
[2016-10-02] VITALS (7 sets, daily range): BP systolic 108–140; BP diastolic 56–74; PULSE 72–81; RESP 17–18; TEMP 96–98.6; O2SAT 93–97
[2016-10-02] MEDS: oxyCODONE/ACETAMINOPHEN 10 MG/325 MG TAB PO PRN ×6 (01:44→22:33)
[2016-10-02 07:12] LABS: PROTHROMBIN TIME - PATIENT 10.6 SEC (9.8-11.6)
[2016-10-02 07:22] LABS: HEMATOCRIT 31.1 % (35.0-46.0); MEAN CELL VOLUME 90.3 FL (80.0-100.0); MEAN CORPUSCULAR HEMOGLOBIN 31.4 PG (27.0-34.0); MEAN CORPUSCULAR HGB CONC 34.8 % (32.0-36.0); PLATELET COUNT 210 TH/MM3 (150-450); RED BLOOD COUNT 3.44 MIL/MM3 (4.00-5.30); REVIEW FLAG FINAL; WHITE BLOOD COUNT 10.6 TH/MM3 (4.0-11.0)
[2016-10-02] MEDS: SODIUM CHLOR 0.9% 1000 ML INJ 1,000 ML IV SCH ×2 (07:34→16:54)
[2016-10-02 07:38] LABS: ALT (GPT) 15 U/L (10-53); ANION GAP 7 MEQ/L (5-15); AST (GOT) 14 U/L (15-37); BICARBONATE 30.5 MEQ/L (21.0-32.0); BLOOD UREA NITROGEN 7 MG/DL (7-18); CHLORIDE 104 MEQ/L (98-107); GLOMERULAR FILTRATION RATE 110 ML/MIN (>89); POTASSIUM 3.5 MEQ/L (3.5-5.1); SODIUM (NA) 141 MEQ/L (136-145)
[2016-10-02 07:40] LABS: ALKALINE PHOSPHATASE 59 U/L (45-117); TOTAL BILIRUBIN ADULT 0.7 MG/DL (0.2-1.0)
[2016-10-02] MEDS ORDERED: DEXAMETHASONE SOD PHOS 20 MG/5 ML VIAL IV ONE (07:45)
[2016-10-02] MEDS: ATORVASTATIN 20 MG TAB PO SCH (08:16)
[2016-10-02] MEDS: SERTRALINE HCL 50 MG TAB PO SCH (08:16)
[2016-10-02] MEDS: PANTOPRAZOLE SOD 20 MG DELAYED RELEASE TAB PO SCH (08:16)
[2016-10-02] MEDS: SODIUM CHLORIDE 0.9% FLUSH 5 ML FLUSH IVF SCH ×2 (08:20→22:33)
[2016-10-02] MEDS: amLODIPine BESYLATE 5 MG TAB PO SCH (08:21)
[2016-10-02] MEDS: ATENOLOL 50 MG TAB PO SCH (08:21)
[2016-10-02] MEDS: TRIAMTERENE/HCTZ 37.5 MG/25 MG CAP PO SCH (08:21)
--- NOTE | 2016-10-02 08:55 | HHI.PR ---
Subjective Remarks This is a pleasant 76-year-old female with osteoarthritis, HTN, HLD, neuropathy , depression who came into the hospital for elective hip surgery. She is status post right hip arthroplasty done by Dr. Gamez . Previously had laminectomy and was seen at the hospital secondary to postop pain patient had joint steroid injection. States back pain has resolved and prior to surgery her her hip was painful and was affecting her ambulation. 10/02: Stable in her bedroom, no complaint, no nausea, vomit or diarrhea, recommended to continue Incentive spirometry. encourage ambulation Objective Vital Signs Date Time Temp Pulse Resp B/P Pulse Ox O2 Delivery O2 Flow Rate FiO2 10/02/16 08:00 98.1 81 17 108/56 96 10/02/16 04:00 96.0 80 18 115/59 97 10/02/16 00:00 97.1 79 18 125/63 95 10/01/16 20:00 98.3 77 18 102/54 93 10/01/16 19:45 94 21 10/01/16 19:09 Room Air 10/01/16 18:25 18 10/01/16 18:06 98.1 77 17 104/51 94 10/01/16 17:00 69 16 108/68 99 Room Air 10/01/16 16:00 85 15 115/59 97 10/01/16 15:00 80 16 115/67 100 10/01/16 14:00 68 16 102/55 100 10/01/16 13:30 74 12 123/58 99 10/01/16 13:15 79 14 127/60 99 10/01/16 13:00 75 15 110/57 97 10/01/16 12:45 75 12 121/64 98 10/01/16 12:30 90 14 131/66 100 10/01/16 12:15 91 12 133/65 100 Nasal Cannula 2 10/01/16 12:04 97.6 81 16 134/63 100 Nasal Cannula 2 I/O 10/01/16 10/01/16 10/01/16 10/02/16 10/02/16 10/02/16 07:00 15:00 23:00 07:00 15:00 23:00 Intake Total 1800 ml 1848 ml 1156 ml Output Total 300 ml Balance 1500 ml 1848 ml 1156 ml Intake Oral 980 ml 300 ml IV Total 868 ml 856 ml Other 1800 ml Output Estimated Blood Loss 300 ml # Voids 3 3 # Bowel Movements 0 0 Result Diagram: 10/02/16 0647 10/02/16 0647 Imaging Last Impressions Hip and Pelvis X-Ray 10/01/16 1134 Signed Impressions: Service Date/Time: Saturday, October 01, 2016 13:04 - CONCLUSION: 1. Status post right hip arthroplasty in anatomic alignment without significant acute bony fracture. Lam Liriano MD Hip X-Ray 10/01/16 0000 Signed Impressions: Service Date/Time: Saturday, October 01, 2016 10:07 - CONCLUSION: Good position and alignment on this postoperative examination. Tello Michaels MD Procedures S/P right hip arthroplasty 10/01/2016 Other Results Laboratory Tests Test 10/01/16 10/02/16 07:55 06:47 Blood Type A POSITIVE Antibody Screen NEGATIVE White Blood Count 10.6 TH/MM3 Red Blood Count 3.44 MIL/MM3 Hemoglobin 10.8 GM/DL Hematocrit 31.1 % Mean Corpuscular Volume 90.3 FL Mean Corpuscular Hemoglobin 31.4 PG Mean Corpuscular Hemoglobin 34.8 % Concent Red Cell Distribution Width 14.0 % Platelet Count 210 TH/MM3 Mean Platelet Volume 9.1 FL Prothrombin Time 10.6 SEC Prothromb Time International 1.0 RATIO Ratio Sodium Level 141 MEQ/L Potassium Level 3.5 MEQ/L Chloride Level 104 MEQ/L Carbon Dioxide Level 30.5 MEQ/L Anion Gap 7 MEQ/L Blood Urea Nitrogen 7 MG/DL Creatinine 0.54 MG/DL Estimat Glomerular Filtration 110 ML/MIN Rate Random Glucose 84 MG/DL Calcium Level 7.9 MG/DL Total Bilirubin 0.7 MG/DL Aspartate Amino Transf 14 U/L (AST/SGOT) Alanine Aminotransferase 15 U/L (ALT/SGPT) Alkaline Phosphatase 59 U/L Total Protein 5.6 GM/DL Albumin 2.6 GM/DL Objective Remarks GENERAL: This is a well-nourished, well-developed patient, in no apparent distress. SKIN: No rashes, ecchymoses or lesions. Cool and dry. HEAD: Atraumatic. Normocephalic. No temporal or scalp tenderness. EYES: Pupils equal round and reactive. Extraocular motions intact. No scleral icterus. No injection or drainage. ENT: Nose without bleeding. Throat without erythema. Uvula midline. Airway patent. Dry oral mucosa. NECK: Trachea midline. No JVD or lymphadenopathy. CARDIOVASCULAR: Regular rate and rhythm without murmurs, gallops, or rubs. RESPIRATORY: Clear to auscultation. Breath sounds equal bilaterally. No wheezes , rales, or rhonchi. GASTROINTESTINAL: Abdomen soft, non-tender, nondistended. Hypoactive bowel sounds. MUSCULOSKELETAL: Extremities without clubbing, cyanosis, right hip +1 edema. No joint tenderness, effusion, or edema noted. NEUROLOGICAL: Awake and alert. . Motor and sensory grossly within normal limits. Five out of 5 muscle strength in all muscle groups. Normal speech. Medications and IVs Current Medications Medications (Trade) Dose Ordered Sig/Arlene Route Start Time Stop Time Status Last Admin (Betadine 7.5% Scrub) 1 applic ONCE TOPICAL 10/01/16 08:15 10/04/16 08:14 (Norvasc) 5 mg DAILY PO 10/02/16 09:00 (Tenormin) 50 mg DAILY PO 10/02/16 09:00 (Lipitor) 20 mg DAILY PO 10/02/16 09:00 10/02/16 08:16 (Dyazide 37.5-25 Mg) 1 cap DAILY PO 10/02/16 09:00 (Protonix) 20 mg DAILY PO 10/02/16 09:00 10/02/16 08:16 Sertraline HCl 25 mg 25 mg DAILY PO 10/02/16 09:00 10/02/16 08:16 (NS 1000 ml Inj) 1,000 ml @ 100 mls/hr Q10H IV 10/01/16 11:34 10/01/16 21:54 (NS Flush) 2 ml UNSCH PRN IVF 10/01/16 11:45 (NS Flush) 2 ml BID IVF 10/01/16 21:00 (Lovenox Inj) 40 mg Q24H SQ 10/02/16 11:00 10/11/16 11:01 (Theragran M Tab) 1 tab BID PO 10/06/16 09:00 12/01/16 08:59 (Zofran Inj) 4 mg Q6H PRN IVP 10/01/16 11:45 (Colace) 100 mg BID PO 10/02/16 21:00 (Mag-Al Plus Susp Liq) 30 ml Q6H PRN PO 10/01/16 11:45 (Ambien) 5 mg HS PRN PO 10/01/16 21:00 (Dulcolax Supp) 10 mg DAILY PRN RECTAL 10/01/16 11:45 (Milk Of Magnesia Liq) 30 ml DAILY PRN PO 10/01/16 11:45 10/01/16 21:38 (Narcan Inj) 0.4 mg UNSCH PRN IV 10/01/16 11:45 (Benadryl Inj) 25 mg Q6H PRN IV 10/01/16 11:45 (Morphine Inj) 2 mg Q3H PRN IV PUSH 10/01/16 11:45 (Percocet 10-325 Mg) 1 tab Q4H PRN PO 10/01/16 11:45 10/02/16 01:44 Oxycodone/ Acetaminophen 2 tab 2 tab Q4H PRN PO 10/01/16 11:45 10/02/16 05:43 Multivitamins 10 ml/Folic Acid 1 mg/Sodium Chloride 510.2 ml @ 125 mls/hr Q24H IV 10/01/16 17:00 10/06/16 16:59 10/01/16 16:54 (Thiamine Inj/NS Inj) 101 ml @ 100 mls/hr Q24H IV 10/01/16 16:00 10/03/16 17:01 10/01/16 16:53 (Vitamin B1) 100 mg DAILY PO 10/04/16 09:00 (Romazicon Inj) 0.2 mg Q1M PRN IV PUSH 10/01/16 15:15 (Ativan Inj) 1 mg Q6H PRN IV PUSH 10/01/16 15:15 Miscellaneous Information ALL NURSING DEPARTME... UNSCH PRN .XX 10/01/16 16:00 10/02/16 15:59 A/P Assessment and Plan Patient is a 76-year-old female with primary medical history of osteoarthritis, HTN, HLD, neuropathy, depression who came into the hospital for elective hip surgery. She is status post right hip arthroplasty done by Dr. Gamez. S/P right hip arthroplasty Osteoarthritis Chronic Pain - Patient received Decadron 10 mg 1, cefazolin 1 IV, vancomycin 1 IV - Pain management - Managed by Orthopedics HTN Controlled. - Continue home medications amlodipine, atenolol, triamterene hydrochlorothiazide HLD - Continue atorvastatin - Monitor BP trend, controlled BP Alcohol use strongly recommended to stop drinking alcohol. - Couple of whiskey every night - CIWA, monitor for withdrawals - Ativan when necessary no signs of Withdrawal at this time. Hypokalemia Mild and given Potassium Chloride 40 meq one dose. DVT prop Lovenox per orthopedic Code Status Full code Discussed Condition With Patient and all questions answered to the best of my abilities. Discharge Planning As per Attending physician. Marvin Acosta MD Oct 02, 2016 08:55
[2016-10-02] MEDS ORDERED: POTASSIUM CHLORIDE 20 MEQ CONTROLLED RELEASE TAB PO ONE (09:00)
[2016-10-02] MEDS: ENOXAPARIN SODIUM 40 MG/0.4 ML SYRINGE SQ SCH (11:41)
--- NOTE | 2016-10-02 12:04 | PD.ORT.PN ---
Subjective Post Op Day #: 1 Subjective Remarks Patient is OOB in chair. Patient c/o similar pain that she had prior to surgery. Patient is voiding and ambulatory. Objective Vitals Vital Signs Date Time Temp Pulse Resp B/P Pulse Ox O2 Delivery O2 Flow Rate FiO2 10/02/16 10:51 93 21 10/02/16 08:00 98.1 81 17 108/56 96 10/02/16 04:00 96.0 80 18 115/59 97 10/02/16 00:00 97.1 79 18 125/63 95 10/01/16 20:00 98.3 77 18 102/54 93 10/01/16 19:45 94 21 10/01/16 19:09 Room Air 10/01/16 18:25 18 10/01/16 18:06 98.1 77 17 104/51 94 10/01/16 17:00 69 16 108/68 99 Room Air 10/01/16 16:00 85 15 115/59 97 10/01/16 15:00 80 16 115/67 100 10/01/16 14:00 68 16 102/55 100 10/01/16 13:30 74 12 123/58 99 10/01/16 13:15 79 14 127/60 99 10/01/16 13:00 75 15 110/57 97 10/01/16 12:45 75 12 121/64 98 10/01/16 12:30 90 14 131/66 100 10/01/16 12:15 91 12 133/65 100 Nasal Cannula 2 10/01/16 12:04 97.6 81 16 134/63 100 Nasal Cannula 2 I/O 10/01/16 10/01/16 10/01/16 10/02/16 10/02/16 10/02/16 07:00 15:00 23:00 07:00 15:00 23:00 Intake Total 1800 ml 1848 ml 1156 ml Output Total 300 ml Balance 1500 ml 1848 ml 1156 ml Intake Oral 980 ml 300 ml IV Total 868 ml 856 ml Other 1800 ml Output Estimated Blood Loss 300 ml # Voids 3 3 # Bowel Movements 0 0 Result Diagram: 10/02/16 0647 10/02/16 0647 Other Results Laboratory Tests Test 10/02/16 06:47 Prothrombin Time 10.6 SEC (9.8-11.6) Prothromb Time International 1.0 RATIO Ratio Procedures Right ASHLEY Objective Remarks The patient's dressing is C/D/I. EHL/TA/G intact. 2+ pedal pulse. No calf swelling or tenderness. + SILT. Assessment & Plan Ortho Post Op Day #: 1 Problem List: Assessment and Plan POD #1: Right ASHLEY 1. WBAT RLE 2. Lovenox followed by ASA for DVT prophylaxis 3. Ice to the right hip PRN 4. Stable for discharge to SNF ([facility]) on Thursday. Trevor Martinez Oct 02, 2016 12:04
[2016-10-02] MEDS: MULTIVITAMIN INJ 10 ML, FOLIC ACID INJ 1 MG in SODIUM CHLORID 0.9% 500 ML INJ 500 ML IV SCH (16:53)
[2016-10-02] MEDS: THIAMINE INJ 100 MG in SODIUM CHLORIDE 0.9% INJ 100 ML IV SCH (16:53)
[2016-10-02] MEDS: DOCUSATE SODIUM 100 MG CAP PO SCH (22:32)
[2016-10-03] VITALS: BP 122/72; PULSE 71; RESP 18; TEMP 96.6; O2SAT 97
[2016-10-03] MEDS: SODIUM CHLOR 0.9% 1000 ML INJ 1,000 ML IV SCH ×3 (03:34→22:31)
[2016-10-03 04:00] VITALS: BP 130/63; PULSE 83; RESP 18; TEMP 97.3; O2SAT 97
[2016-10-03] MEDS: oxyCODONE/ACETAMINOPHEN 10 MG/325 MG TAB PO PRN ×5 (04:06→22:31)
[2016-10-03 07:57] LABS: HEMATOCRIT 30.5 % (35.0-46.0); MEAN CELL VOLUME 92.6 FL (80.0-100.0); MEAN CORPUSCULAR HEMOGLOBIN 30.3 PG (27.0-34.0); MEAN CORPUSCULAR HGB CONC 32.7 % (32.0-36.0); PLATELET COUNT 202 TH/MM3 (150-450); RED BLOOD COUNT 3.29 MIL/MM3 (4.00-5.30); RED CELL DISTRIBUTION WIDTH 14.4 % (11.6-17.2); REVIEW FLAG FINAL; WHITE BLOOD COUNT 11.9 TH/MM3 (4.0-11.0)
[2016-10-03 08:00] VITALS: BP 118/59; PULSE 72; RESP 16; TEMP 97; O2SAT 95
[2016-10-03] MEDS: SODIUM CHLORIDE 0.9% FLUSH 5 ML FLUSH IVF SCH ×2 (09:00→21:00)
[2016-10-03] MEDS: ATENOLOL 50 MG TAB PO SCH (09:00)
[2016-10-03] MEDS: TRIAMTERENE/HCTZ 37.5 MG/25 MG CAP PO SCH (09:00)
[2016-10-03] MEDS: amLODIPine BESYLATE 5 MG TAB PO SCH (09:00)
[2016-10-03] MEDS: PANTOPRAZOLE SOD 20 MG DELAYED RELEASE TAB PO SCH (10:01)
[2016-10-03] MEDS: ATORVASTATIN 20 MG TAB PO SCH (10:01)
[2016-10-03] MEDS: DOCUSATE SODIUM 100 MG CAP PO SCH ×2 (10:01→21:06)
[2016-10-03] MEDS: SERTRALINE HCL 50 MG TAB PO SCH (10:02)
[2016-10-03] MEDS: ENOXAPARIN SODIUM 40 MG/0.4 ML SYRINGE SQ SCH (10:06)
--- NOTE | 2016-10-03 10:32 | HHI.PR ---
Subjective Remarks This is a pleasant 76-year-old female with osteoarthritis, HTN, HLD, neuropathy , depression who came into the hospital for elective hip surgery. She is status post right hip arthroplasty done by Dr. Gamez . Previously had laminectomy and was seen at the hospital secondary to postop pain patient had joint steroid injection. States back pain has resolved and prior to surgery her her hip was painful and was affecting her ambulation. 10/02: recommended to continue Incentive spirometry. encourage ambulation 10/03: Seen in her bedroom Right hip dressed, no complaint, eating her breakfast , she was walking to the restroom, working with Physical therapy. no nausea, vomit or diarrhea, her Vital signs stable, Okay to discharge from Medicine standpoint. Objective Vital Signs Date Time Temp Pulse Resp B/P Pulse Ox O2 Delivery O2 Flow Rate FiO2 10/03/16 08:00 97.0 72 16 118/59 95 10/03/16 04:00 97.3 83 18 130/63 97 10/03/16 00:00 96.6 71 18 122/72 97 10/02/16 20:00 97.7 72 18 120/61 97 10/02/16 16:00 97.5 76 18 140/74 93 10/02/16 11:56 98.6 78 18 108/59 94 10/02/16 10:51 93 21 I/O 10/02/16 10/02/16 10/02/16 10/03/16 10/03/16 10/03/16 07:00 15:00 23:00 07:00 15:00 23:00 Intake Total 1156 ml 720 ml 800 ml 240 ml Balance 1156 ml 720 ml 800 ml 240 ml Intake Oral 300 ml 720 ml 800 ml 240 ml IV Total 856 ml # Voids 3 3 2 2 # Bowel Movements 0 0 0 Result Diagram: 10/03/16 0655 10/02/16 0647 Imaging Last Impressions Hip and Pelvis X-Ray 10/01/16 1134 Signed Impressions: Service Date/Time: Saturday, October 01, 2016 13:04 - CONCLUSION: 1. Status post right hip arthroplasty in anatomic alignment without significant acute bony fracture. Lam Liriano MD Hip X-Ray 10/01/16 0000 Signed Impressions: Service Date/Time: Saturday, October 01, 2016 10:07 - CONCLUSION: Good position and alignment on this postoperative examination. Tello Michaels MD Procedures S/P right hip arthroplasty 10/01/2016 Other Results Laboratory Tests Test 10/01/16 10/02/16 10/03/16 07:55 06:47 06:55 Blood Type A POSITIVE Antibody Screen NEGATIVE Prothrombin Time 10.6 SEC Prothromb Time International 1.0 RATIO Ratio Sodium Level 141 MEQ/L Potassium Level 3.5 MEQ/L Chloride Level 104 MEQ/L Carbon Dioxide Level 30.5 MEQ/L Anion Gap 7 MEQ/L Blood Urea Nitrogen 7 MG/DL Creatinine 0.54 MG/DL Estimat Glomerular Filtration 110 ML/MIN Rate Random Glucose 84 MG/DL Calcium Level 7.9 MG/DL Total Bilirubin 0.7 MG/DL Aspartate Amino Transf 14 U/L (AST/SGOT) Alanine Aminotransferase 15 U/L (ALT/SGPT) Alkaline Phosphatase 59 U/L Total Protein 5.6 GM/DL Albumin 2.6 GM/DL White Blood Count 11.9 TH/MM3 Red Blood Count 3.29 MIL/MM3 Hemoglobin 10.0 GM/DL Hematocrit 30.5 % Mean Corpuscular Volume 92.6 FL Mean Corpuscular Hemoglobin 30.3 PG Mean Corpuscular Hemoglobin 32.7 % Concent Red Cell Distribution Width 14.4 % Platelet Count 202 TH/MM3 Mean Platelet Volume 9.5 FL Objective Remarks GENERAL: This is a well-nourished, well-developed patient, in no apparent distress. SKIN: No rashes, ecchymoses or lesions. Cool and dry. HEAD: Atraumatic. Normocephalic. No temporal or scalp tenderness. EYES: Pupils equal round and reactive. Extraocular motions intact. No scleral icterus. No injection or drainage. ENT: Nose without bleeding. Throat without erythema. Uvula midline. Airway patent. Dry oral mucosa. NECK: Trachea midline. No JVD or lymphadenopathy. CARDIOVASCULAR: Regular rate and rhythm without murmurs, gallops, or rubs. RESPIRATORY: Clear to auscultation. Breath sounds equal bilaterally. No wheezes , rales, or rhonchi. GASTROINTESTINAL: Abdomen soft, non-tender, nondistended. Hypoactive bowel sounds. MUSCULOSKELETAL: Extremities without clubbing, cyanosis, Right Hip dressed. NEUROLOGICAL: Awake and alert. . No focal deficits. Medications and IVs Current Medications Medications (Trade) Dose Ordered Sig/Arlene Route Start Time Stop Time Status Last Admin (Betadine 7.5% Scrub) 1 applic ONCE TOPICAL 10/01/16 08:15 10/04/16 08:14 (Norvasc) 5 mg DAILY PO 10/02/16 09:00 (Tenormin) 50 mg DAILY PO 10/02/16 09:00 (Lipitor) 20 mg DAILY PO 10/02/16 09:00 10/03/16 10:01 (Dyazide 37.5-25 Mg) 1 cap DAILY PO 10/02/16 09:00 (Protonix) 20 mg DAILY PO 10/02/16 09:00 10/03/16 10:01 Sertraline HCl 25 mg 25 mg DAILY PO 10/02/16 09:00 10/03/16 10:02 (NS 1000 ml Inj) 1,000 ml @ 100 mls/hr Q10H IV 10/01/16 11:34 10/02/16 16:54 (NS Flush) 2 ml UNSCH PRN IVF 10/01/16 11:45 (NS Flush) 2 ml BID IVF 10/01/16 21:00 10/03/16 09:00 (Lovenox Inj) 40 mg Q24H SQ 10/02/16 11:00 10/11/16 11:01 10/03/16 10:06 (Theragran M Tab) 1 tab BID PO 10/06/16 09:00 12/01/16 08:59 (Zofran Inj) 4 mg Q6H PRN IVP 10/01/16 11:45 (Colace) 100 mg BID PO 10/02/16 21:00 10/03/16 10:01 (Mag-Al Plus Susp Liq) 30 ml Q6H PRN PO 10/01/16 11:45 (Ambien) 5 mg HS PRN PO 10/01/16 21:00 (Dulcolax Supp) 10 mg DAILY PRN RECTAL 10/01/16 11:45 (Milk Of Magnesia Liq) 30 ml DAILY PRN PO 10/01/16 11:45 10/01/16 21:38 (Narcan Inj) 0.4 mg UNSCH PRN IV 10/01/16 11:45 (Benadryl Inj) 25 mg Q6H PRN IV 10/01/16 11:45 (Morphine Inj) 2 mg Q3H PRN IV PUSH 10/01/16 11:45 (Percocet 10-325 Mg) 1 tab Q4H PRN PO 10/01/16 11:45 10/02/16 01:44 Oxycodone/ Acetaminophen 2 tab 2 tab Q4H PRN PO 10/01/16 11:45 10/03/16 10:01 Multivitamins 10 ml/Folic Acid 1 mg/Sodium Chloride 510.2 ml @ 125 mls/hr Q24H IV 10/01/16 17:00 10/06/16 16:59 10/02/16 16:53 (Thiamine Inj/NS Inj) 101 ml @ 100 mls/hr Q24H IV 10/01/16 16:00 10/03/16 17:01 10/02/16 16:53 (Vitamin B1) 100 mg DAILY PO 10/04/16 09:00 (Romazicon Inj) 0.2 mg Q1M PRN IV PUSH 10/01/16 15:15 (Ativan Inj) 1 mg Q6H PRN IV PUSH 10/01/16 15:15 A/P Assessment and Plan Patient is a 76-year-old female with primary medical history of osteoarthritis, HTN, HLD, neuropathy, depression who came into the hospital for elective hip surgery. She is status post right hip arthroplasty done by Dr. Gamez. S/P right hip arthroplasty Osteoarthritis Chronic Pain - Patient received Decadron 10 mg 1, cefazolin 1 IV, vancomycin 1 IV - Pain management - Managed by Orthopedics HTN Controlled. - Continue home medications amlodipine, atenolol, triamterene hydrochlorothiazide HLD - Continue atorvastatin - Monitor BP trend, controlled BP Alcohol use strongly recommended to stop drinking alcohol. - Couple of whiskey every night - CIWA, monitor for withdrawals - Ativan when necessary no signs of Withdrawal at this time. Hypokalemia replaced. DVT prop Lovenox per orthopedic Code Status Full code Discussed Condition With Patient and all questions answered to the best of my abilities. Okay to discharge from Medicine standpoint to Rehab placement. Discharge Planning As per Attending physician. Marvin Acosta MD Oct 03, 2016 10:32
[2016-10-03 11:14] VITALS: BP 117/59; PULSE 74; RESP 16; TEMP 97.6; O2SAT 96
--- NOTE | 2016-10-03 12:01 | PD.ORT.PN ---
Subjective Post Op Day #: 2 Subjective Remarks Patient is OOB ambulating in the room. Patient c/o pain to the right hip however her pain is better than yesterday. Patient is voiding and ambulatory. Objective Vitals Vital Signs Date Time Temp Pulse Resp B/P Pulse Ox O2 Delivery O2 Flow Rate FiO2 10/03/16 11:14 97.6 74 16 117/59 96 10/03/16 08:00 97.0 72 16 118/59 95 10/03/16 04:00 97.3 83 18 130/63 97 10/03/16 00:00 96.6 71 18 122/72 97 10/02/16 20:00 97.7 72 18 120/61 97 10/02/16 16:00 97.5 76 18 140/74 93 I/O 10/02/16 10/02/16 10/02/16 10/03/16 10/03/16 10/03/16 06:59 14:59 22:59 06:59 14:59 22:59 Intake Total 1156 ml 720 ml 800 ml 240 ml Balance 1156 ml 720 ml 800 ml 240 ml Intake Oral 300 ml 720 ml 800 ml 240 ml IV Total 856 ml # Voids 3 3 2 2 # Bowel Movements 0 0 0 Result Diagram: 10/03/16 0655 10/02/16 0647 Procedures Right ASHLEY Objective Remarks The patient's dressing changed with scant serosanguineous drainage. Incision is well approximated with surgical clips intact. No redness or s/s of infection. EHL/TA/G intact. 2+ pedal pulse. No calf swelling or tenderness. + SILT. Assessment & Plan Ortho Post Op Day #: 2 Problem List: Assessment and Plan POD #2: Right ASHLEY 1. WBAT RLE 2. Lovenox followed by ASA for DVT prophylaxis 3. Ice to the right hip PRN 4. Stable for discharge to SNF ([facility]) on Thursday. Trevor Martinez Oct 03, 2016 12:01
[2016-10-03 16:09] VITALS: BP 151/65; PULSE 75; RESP 16; TEMP 97.3; O2SAT 96
[2016-10-03] MEDS: THIAMINE INJ 100 MG in SODIUM CHLORIDE 0.9% INJ 100 ML IV SCH (16:24)
[2016-10-03] MEDS: MULTIVITAMIN INJ 10 ML, FOLIC ACID INJ 1 MG in SODIUM CHLORID 0.9% 500 ML INJ 500 ML IV SCH (17:26)
[2016-10-03 20:05] VITALS: BP 142/69; PULSE 77; RESP 17; TEMP 96.8; O2SAT 98
[2016-10-04 00:04] VITALS: BP 146/65; PULSE 76; RESP 17; TEMP 96.8; O2SAT 97
[2016-10-04] MEDS: oxyCODONE/ACETAMINOPHEN 10 MG/325 MG TAB PO PRN ×2 (06:36→12:16)
[2016-10-04 06:55] LABS: HEMATOCRIT 28.8 % (35.0-46.0); MEAN CELL VOLUME 92.1 FL (80.0-100.0); MEAN CORPUSCULAR HEMOGLOBIN 31.4 PG (27.0-34.0); MEAN CORPUSCULAR HGB CONC 34.1 % (32.0-36.0); PLATELET COUNT 209 TH/MM3 (150-450); RED BLOOD COUNT 3.13 MIL/MM3 (4.00-5.30); RED CELL DISTRIBUTION WIDTH 14.5 % (11.6-17.2); REVIEW FLAG FINAL; WHITE BLOOD COUNT 8.5 TH/MM3 (4.0-11.0)
[2016-10-04 08:02] VITALS: BP 125/66; PULSE 83; RESP 18; TEMP 96.9; O2SAT 94
--- NOTE | 2016-10-04 08:54 | PD.ORT.PN ---
Subjective Subjective Remarks No complaints. Patient is very comfortable. Objective Vitals Vital Signs Date Time Temp Pulse Resp B/P Pulse Ox O2 Delivery O2 Flow Rate FiO2 10/04/16 08:02 96.9 83 18 125/66 94 10/04/16 00:04 96.8 76 17 146/65 97 10/03/16 20:05 96.8 77 17 142/69 98 10/03/16 16:09 97.3 75 16 151/65 96 10/03/16 11:14 97.6 74 16 117/59 96 I/O 10/03/16 10/03/16 10/03/16 10/04/16 10/04/16 10/04/16 07:00 15:00 23:00 07:00 15:00 23:00 Intake Total 240 ml 480 ml 240 ml 240 ml Balance 240 ml 480 ml 240 ml 240 ml Intake Oral 240 ml 480 ml 240 ml 240 ml # Voids 2 3 1 1 # Bowel Movements 0 0 0 0 Result Diagram: 10/04/16 0614 10/02/16 0647 Procedures Right ASHLEY Objective Remarks Dressing is dry. Mild swelling. No calf tenderness or swelling. Neuro normal. Cap refill satisfactory Assessment & Plan Ortho Post Op Day #: 3 Problem List: Assessment and Plan POD #3: Right ASHLEY 1. WBAT RLE 2. Lovenox followed by ASA for DVT prophylaxis 3. Ice to the right hip PRN 4. Stable for discharge to SNF ([facility]) today. Vargas Rosa MD Oct 04, 2016 08:54
[2016-10-04] MEDS: SODIUM CHLORIDE 0.9% FLUSH 5 ML FLUSH IVF SCH (09:00)
[2016-10-04] MEDS: TRIAMTERENE/HCTZ 37.5 MG/25 MG CAP PO SCH (09:00)
[2016-10-04] MEDS ORDERED: THIAMINE HCL 100 MG TAB PO SCH (09:00)
--- NOTE | 2016-10-04 09:20 | HHI.PR ---
Subjective Remarks This is a pleasant 76-year-old female with osteoarthritis, HTN, HLD, neuropathy , depression who came into the hospital for elective hip surgery. She is status post right hip arthroplasty done by Dr. Gamez . Previously had laminectomy and was seen at the hospital secondary to postop pain patient had joint steroid injection. States back pain has resolved and prior to surgery her her hip was painful and was affecting her ambulation. 10/02: recommended to continue Incentive spirometry. encourage ambulation 10/03: Seen in her bedroom Right hip dressed. 10/04: stable in her bedroom, no complain, no nausea, vomit or diarrhea. Objective Vital Signs Date Time Temp Pulse Resp B/P Pulse Ox O2 Delivery O2 Flow Rate FiO2 10/04/16 08:02 96.9 83 18 125/66 94 10/04/16 00:04 96.8 76 17 146/65 97 10/03/16 20:05 96.8 77 17 142/69 98 10/03/16 16:09 97.3 75 16 151/65 96 10/03/16 11:14 97.6 74 16 117/59 96 I/O 10/03/16 10/03/16 10/03/16 10/04/16 10/04/16 10/04/16 07:00 15:00 23:00 07:00 15:00 23:00 Intake Total 240 ml 480 ml 240 ml 240 ml Balance 240 ml 480 ml 240 ml 240 ml Intake Oral 240 ml 480 ml 240 ml 240 ml # Voids 2 3 1 1 # Bowel Movements 0 0 0 0 Result Diagram: 10/04/16 0614 10/02/16 0647 Imaging Last Impressions Hip and Pelvis X-Ray 10/01/16 1134 Signed Impressions: Service Date/Time: Saturday, October 01, 2016 13:04 - CONCLUSION: 1. Status post right hip arthroplasty in anatomic alignment without significant acute bony fracture. Lam Liriano MD Hip X-Ray 10/01/16 0000 Signed Impressions: Service Date/Time: Saturday, October 01, 2016 10:07 - CONCLUSION: Good position and alignment on this postoperative examination. Tello Michaels MD Procedures S/P right hip arthroplasty 10/01/2016 Other Results Laboratory Tests Test 10/01/16 10/02/16 10/04/16 07:55 06:47 06:14 Blood Type A POSITIVE Antibody Screen NEGATIVE Prothrombin Time 10.6 SEC Prothromb Time International 1.0 RATIO Ratio Sodium Level 141 MEQ/L Potassium Level 3.5 MEQ/L Chloride Level 104 MEQ/L Carbon Dioxide Level 30.5 MEQ/L Anion Gap 7 MEQ/L Blood Urea Nitrogen 7 MG/DL Creatinine 0.54 MG/DL Estimat Glomerular Filtration 110 ML/MIN Rate Random Glucose 84 MG/DL Calcium Level 7.9 MG/DL Total Bilirubin 0.7 MG/DL Aspartate Amino Transf 14 U/L (AST/SGOT) Alanine Aminotransferase 15 U/L (ALT/SGPT) Alkaline Phosphatase 59 U/L Total Protein 5.6 GM/DL Albumin 2.6 GM/DL White Blood Count 8.5 TH/MM3 Red Blood Count 3.13 MIL/MM3 Hemoglobin 9.8 GM/DL Hematocrit 28.8 % Mean Corpuscular Volume 92.1 FL Mean Corpuscular Hemoglobin 31.4 PG Mean Corpuscular Hemoglobin 34.1 % Concent Red Cell Distribution Width 14.5 % Platelet Count 209 TH/MM3 Mean Platelet Volume 9.5 FL Objective Remarks GENERAL: This is a well-nourished, well-developed patient, in no apparent distress. SKIN: No rashes, ecchymoses or lesions. Cool and dry. HEAD: Atraumatic. Normocephalic. No temporal or scalp tenderness. EYES: Pupils equal round and reactive. Extraocular motions intact. No scleral icterus. No injection or drainage. ENT: Nose without bleeding. Throat without erythema. Uvula midline. Airway patent. Dry oral mucosa. NECK: Trachea midline. No JVD or lymphadenopathy. CARDIOVASCULAR: Regular rate and rhythm without murmurs, gallops, or rubs. RESPIRATORY: Clear to auscultation. Breath sounds equal bilaterally. No wheezes , rales, or rhonchi. GASTROINTESTINAL: Abdomen soft, non-tender, nondistended. Hypoactive bowel sounds. MUSCULOSKELETAL: Extremities without clubbing, cyanosis, Right Hip dressed. NEUROLOGICAL: Awake and alert. . No focal deficits. Medications and IVs Current Medications Medications (Trade) Dose Ordered Sig/Arlene Route Start Time Stop Time Status Last Admin (Norvasc) 5 mg DAILY PO 10/02/16 09:00 (Tenormin) 50 mg DAILY PO 10/02/16 09:00 (Lipitor) 20 mg DAILY PO 10/02/16 09:00 10/03/16 10:01 (Dyazide 37.5-25 Mg) 1 cap DAILY PO 10/02/16 09:00 (Protonix) 20 mg DAILY PO 10/02/16 09:00 10/03/16 10:01 Sertraline HCl 25 mg 25 mg DAILY PO 10/02/16 09:00 10/03/16 10:02 (NS 1000 ml Inj) 1,000 ml @ 100 mls/hr Q10H IV 10/01/16 11:34 10/02/16 16:54 (NS Flush) 2 ml UNSCH PRN IVF 10/01/16 11:45 (NS Flush) 2 ml BID IVF 10/01/16 21:00 10/03/16 21:00 (Lovenox Inj) 40 mg Q24H SQ 10/02/16 11:00 10/11/16 11:01 10/03/16 10:06 (Theragran M Tab) 1 tab BID PO 10/06/16 09:00 12/01/16 08:59 (Zofran Inj) 4 mg Q6H PRN IVP 10/01/16 11:45 (Colace) 100 mg BID PO 10/02/16 21:00 10/03/16 21:06 (Mag-Al Plus Susp Liq) 30 ml Q6H PRN PO 10/01/16 11:45 (Ambien) 5 mg HS PRN PO 10/01/16 21:00 (Dulcolax Supp) 10 mg DAILY PRN RECTAL 10/01/16 11:45 (Milk Of Magnesia Liq) 30 ml DAILY PRN PO 10/01/16 11:45 10/01/16 21:38 (Narcan Inj) 0.4 mg UNSCH PRN IV 10/01/16 11:45 (Benadryl Inj) 25 mg Q6H PRN IV 10/01/16 11:45 (Morphine Inj) 2 mg Q3H PRN IV PUSH 10/01/16 11:45 (Percocet 10-325 Mg) 1 tab Q4H PRN PO 10/01/16 11:45 10/02/16 01:44 Oxycodone/ Acetaminophen 2 tab 2 tab Q4H PRN PO 10/01/16 11:45 10/04/16 06:36 (Mvi-12 Inj/ Folvite Inj/NS 500 ml Inj) 510.2 ml @ 125 mls/hr Q24H IV 10/01/16 17:00 10/06/16 16:59 10/03/16 17:26 (Vitamin B1) 100 mg DAILY PO 10/04/16 09:00 (Romazicon Inj) 0.2 mg Q1M PRN IV PUSH 10/01/16 15:15 (Ativan Inj) 1 mg Q6H PRN IV PUSH 10/01/16 15:15 A/P Assessment and Plan Patient is a 76-year-old female with primary medical history of osteoarthritis, HTN, HLD, neuropathy, depression who came into the hospital for elective hip surgery. She is status post right hip arthroplasty done by Dr. Gamez. S/P right hip arthroplasty Osteoarthritis Chronic Pain - Patient received Decadron 10 mg 1, cefazolin 1 IV, vancomycin 1 IV - Pain management - Managed by Orthopedics HTN Controlled. - Continue home medications amlodipine, atenolol, triamterene hydrochlorothiazide HLD - Continue atorvastatin - Monitor BP trend, controlled BP Alcohol use strongly recommended to stop drinking alcohol. - Couple of whiskey every night - CIWA, monitor for withdrawals - Ativan when necessary no signs of Withdrawal at this time. Hypokalemia replaced. DVT prop Lovenox per orthopedic Code Status Full code Discussed Condition With Patient and all questions answered to the best of my abilities. Okay to discharge from Medicine standpoint to Rehab placement. Discharge Planning As per Attending physician. Marvin Acosta MD Oct 04, 2016 09:20 Marvin Acosta MD Oct 04, 2016 09:20
[2016-10-04] MEDS: SODIUM CHLOR 0.9% 1000 ML INJ 1,000 ML IV SCH (09:34)
[2016-10-04] MEDS: SERTRALINE HCL 50 MG TAB PO SCH (09:57)
[2016-10-04] MEDS: ATORVASTATIN 20 MG TAB PO SCH (09:58)
[2016-10-04] MEDS: DOCUSATE SODIUM 100 MG CAP PO SCH (09:58)
[2016-10-04] MEDS: PANTOPRAZOLE SOD 20 MG DELAYED RELEASE TAB PO SCH (09:59)
[2016-10-04] MEDS: ATENOLOL 50 MG TAB PO SCH (09:59)
[2016-10-04] MEDS: MULTIVITAMIN INJ 10 ML, FOLIC ACID INJ 1 MG in SODIUM CHLORID 0.9% 500 ML INJ 500 ML IV SCH (09:59)
[2016-10-04] MEDS: amLODIPine BESYLATE 5 MG TAB PO SCH (09:59)
[2016-10-04] MEDS: ENOXAPARIN SODIUM 40 MG/0.4 ML SYRINGE SQ SCH (10:00)
[2016-10-04 12:11] VITALS: BP 121/65; PULSE 75; RESP 18; TEMP 97.5; O2SAT 99
--- NOTE | 2016-10-04 19:52 | HHI.DS ---
Discharge Summary Admission Date Oct 01, 2016 at 06:39 Discharge Date: Oct 04, 2016 Admitting Diagnosis OA of the right hip Status post total hip replacement, right. Diagnosis: (1) Osteoarthritis of right hip Diagnosis: Principal (2) Status post total hip replacement, right Diagnosis: Principal Procedures Right ASHLEY Brief History This is a 76 year old female patient with severe OA of the right hip CBC/BMP: 10/04/16 0614 10/02/16 0647 Significant Findings Laboratory Tests Test 10/02/16 10/03/16 10/04/16 06:47 06:55 06:14 Red Blood Count 3.44 MIL/MM3 3.29 MIL/MM3 3.13 MIL/MM3 (4.00-5.30) (4.00-5.30) (4.00-5.30) Hemoglobin 10.8 GM/DL 10.0 GM/DL 9.8 GM/DL (11.6-15.3) (11.6-15.3) (11.6-15.3) Hematocrit 31.1 % 30.5 % 28.8 % (35.0-46.0) (35.0-46.0) (35.0-46.0) Calcium Level 7.9 MG/DL (8.5-10.1) Aspartate Amino Transf 14 U/L (15-37) (AST/SGOT) Total Protein 5.6 GM/DL (6.4-8.2) Albumin 2.6 GM/DL (3.4-5.0) White Blood Count 11.9 TH/MM3 (4.0-11.0) PE at Discharge Dressing is dry. Mild swelling. No calf tenderness or swelling. Neuro normal. Cap refill satisfactory Hospital Course The patient was admitted to the hospital for severe right hip OA to have a right ASHLEY. The patient's surgery went well with no complications. The patient is WBAT on the LLE. The patient is on a regular diet. The patient was discharged home on Lovenox followed by ASA for DVT prophylaxis. The patient was discharged to SNF and will f/u in the office with Dr. Gamez as previously arranged. Pt Condition on Discharge: Stable Discharge Disposition: Discharge to SNF Discharge Instructions Diet Instructions: As Tolerated, No Restrictions Activities You Can Perform: Weight Bearing as Ellen Activities to Avoid: Strenuous Activity Follow up Referrals: Orthopedics with Grzegorz Gamez MD SNF/[facility] with [facility] New Medications: Aspirin (Aspirin) 325 Mg Tab 325 MG PO DAILY Start Aspirin after Lovenox is completed. Prevent Blood Clot # 30 Ref 0 TAB Commode 3-in-1 (Commode 3-in-1) 1 Mis Mis 1 EA .ROUTE DIRECTED #1 Ref 0 EA Enoxaparin Inj (Lovenox Inj) 40 Mg/0.4 Ml Syr 40 MG SQ DAILY Start Aspirin after Lovenox is completed. Blood Clot Prevention # 10 Ref 0 SYRINGE Oxycodone-Acetaminophen (Percocet) 10-325 mg Tab 1-2 TAB PO Q4H PRN PAIN #60 Ref 0 TAB Walker with Front Wheels (Walker with Front Wheels) 1 Mis Mis 1 EA .ROUTE DIRECTED #1 Ref 0 EA Continued Medications: Amlodipine (Amlodipine) 5 Mg Tab 5 MG PO DAILY Days 90 Atenolol (Atenolol) 50 Mg Tab 50 MG PO DAILY Blood Pressure Management Ref 0 TAB Atorvastatin (Atorvastatin) 20 Mg Tab 20 MG PO DAILY Days 90 Omeprazole (Omeprazole) 20 Mg Cap 20 MG PO DAILY Days 90 Sertraline (Sertraline) 25 Mg Tab 25 MG PO DAILY Days 90 Triamterene-Hydrochlorothiazide (Triamterene-Hydrochlorothiazide) 37.5-25 Mg Cap 1 CAP PO DAILY #30 Ref 0 CAP Discontinued Medications: Aspirin (Aspirin) 81 Mg Chew 81 MG CHEW DAILY Ref 0 TAB Coenzyme Q10 (Ubidecarenone) (Coq-10) 30 Mg Cap 1 CAPLET PO DAILY Fentanyl Patch 72 HR (Duragesic Patch 72 HR) 25 Mcg/Hr Patch 25 MCG T-DERMAL Q72H Remove old patch when new one placed. Pain Management #10 Ref 0 PATCH Hydrocodone-Acetaminophen ([place]) 10-325 Mg Tab 1 TAB PO Q6H PRN PAIN #60 Ref 0 TAB [place]-3 Fatty Acids (Fish Oil) 1,000 Mg Cap 100 MG PO DAILY Tramadol (Tramadol) 50 Mg Tab 50 MG PO DAILY Days 90 Trevor Martinez Oct 04, 2016 19:52
[2016-10-06] MEDS ORDERED: MULTIVITAMINS/MINERALS THERAPEUTIC TAB PO SCH (09:00)
== END 2016-10-04 15:29 | DRG 470 ==
LOC: HSDI 10-01 06:39 → N06B 10-01 17:51
PROVIDERS: ADMIT Orthopaedic Surgery; ATTEND Orthopaedic Surgery
PROC: 0SR902A Replacement of Right Hip Joint with Metal on Polyethylene Synthetic Substitute, Uncemented, Open Approach (ICD-10-PCS; principal; 2016-10-01 09:41)
DX: M16.11 Unilateral primary osteoarthritis, right hip (principal); G62.9 Polyneuropathy, unspecified; I10 Essential (primary) hypertension; E78.5 Hyperlipidemia, unspecified; E87.6 Hypokalemia; I25.10 Atherosclerotic heart disease of native coronary artery without angina pectoris; K21.9 Gastro-esophageal reflux disease without esophagitis; F10.20 Alcohol dependence, uncomplicated; F32.9 Major depressive disorder, single episode, unspecified; Z85.110 Personal history of malignant carcinoid tumor of bronchus and lung; Z95.5 Presence of coronary angioplasty implant and graft; Z98.1 Arthrodesis status
CPT/HCPCS: 73502; 76000; 80053; 82948; 85027; 85610; 86850; 86900; 86901; 94150; C1776; C9290; J0131; J0690; J1100; J1170; J1580; J1650; J2250; J2270; J2370; J2405; J2710; J3010; J3370; J3411; J7030; J7040; J7050; J7120

== ENCOUNTER → 2016-09-15 | Outpatient (CLI) | payer OTHER ==
[~2016-09-15] MED LIST changes: +ASPI325T PO; +COMMODE 3-IN-11 MIS; +COQ-30CA2 PO; +ENOX40P SQ; +PERC10TA27 PO; +WALKER WHEELS/F1 MIS
== END ==
LOC: CPRE 11:38
PROVIDERS: ATTEND Orthopaedic Surgery
DX: Z01.812 Encounter for preprocedural laboratory examination (principal); M25.50 Pain in unspecified joint; M79.609 Pain in unspecified limb